=== PATIENT | female | born 1980 ===

== ENCOUNTER 2018-01-30 21:05 | Inpatient (IN) | payer OTHER, MEDICAID ==
--- NOTE | 2018-01-30 21:31 | C.PDOC ---
History Of Present Illness 37 y/o F BIBEMS s/p Seroquel overdose. Patient unable to recall amount taken, states it was suicide attempt. Denies pain. Full HPI/ROS unobtainable due to patient's condition. Time Seen by Provider: 01/30/18 21:21 Chief Complaint (Nursing): Substance Abuse Past Medical History Vital Signs: Last Vital Signs Temp 98.2 F 01/30/18 21:10 Pulse 101 H 01/30/18 21:37 Resp 16 01/30/18 21:37 BP 139/84 01/30/18 21:37 Pulse Ox 99 01/30/18 21:55 - Medical History PMH: Hypothyroidism Surgical History: Appendectomy Family History: States: No Known Family Hx - Social History Hx Alcohol Use: No Hx Substance Use: No Review Of Systems Review Of Systems: ROS cannot be obtained secondary to pt's inabilty to answer questions. Physical Exam - Physical Exam Additional Physical Exam Comments: Constitutional: Drowsy. Head: Normocephalic. Atraumatic. Eyes: Pupils mildly constricted. ENT: Moist mucous membranes. Neck: Supple. Cardiovascular: Regular rate. Radial pulse 2+ bilaterally. Chest: No tenderness. Respiratory: Clear to auscultation bilaterally. GI: Soft. Nontender. Nondistended. Back: No CVA tenderness. Musculoskeletal: No tenderness or swelling of extremities. Skin: No rash. Neurologic: Alert, no focal deficit. ED Course And Treatment - Laboratory Results Result Diagrams: 01/30/18 21:10 01/30/18 21:10 O2 Sat by Pulse Oximetry: 99 (RA) Pulse Ox Interpretation: Normal Critical Care Time - Critical Care Note Total Time (in mins): 60 Comments: Required complex decision making, consultation with multiple specialists. Documented critical care: time excludes all time spent performing seperately billable procedures. Medical Decision Making Medical Decision Making: EKG NSR 92 bpm, QRS 88, QTc 484 Magnesium 1.7 2g magnesium administered Repeat EKG NSR 95 bpm, QRS 94, QTc 424 Patient with bicarb 17 suggesting other concomitant ingestion. Discussed with Dr. Lucia ICU who accepts to ICU. Added serum osm and lactate to assess for cause of acidosis and anion gap. Psych consult placed. On 1:1. Discussed case with Jarod from Poison Control, recommendations appreciated. Dr. Nash Lucia accepts patient to medical service. Disposition - Disposition Disposition: HOSPITALIZED Disposition Time: 23:22 Condition: CRITICAL Forms: [employer] (Pakistani) - Clinical Impression Clinical Impression: Intentional overdose of drug in tablet form
[2018-01-30 21:36] LABS: BASO % 0.1 % (0.0-2.0); EOS % 0.1 % (0.0-4.0); HEMOGLOBIN 12.9 g/dL (11.0-16.0); LYMPH # 0.7 K/uL (1.0-4.3); LYMPH % 6.2 % (20.0-40.0); MEAN CELL VOLUME 79.3 fL (81.0-99.0); MEAN CORPUSCULAR HEMOGLOBIN 25.6 pg (27.0-31.0); MEAN CORPUSCULAR HGB CONC 32.3 g/dL (33.0-37.0); MEAN PLATELET VOLUME 8.6 fL (7.2-11.7); MONO # 0.6 K/uL (0.0-0.8); MONO % 5.1 % (0.0-10.0); NEUT # 10.4 K/uL (1.8-7.0); NEUT % 88.5 % (50.0-75.0); PLATELET COUNT 193 K/uL (130-400); RBC 5.02 Mil/uL (3.80-5.20); RED CELL DISTRIBUTION WIDTH 17.1 % (11.5-14.5); WHITE BLOOD COUNT 11.8 K/uL (4.8-10.8)
[2018-01-30] MEDS: Magnesium Sulfate 1 gm in D5W 1 GM/100 ML BAG IVPB SCH ×2 (21:45→22:05)
[2018-01-30] MEDS ORDERED: Magnesium Sulfate 1 gm in D5W 2 GM/200 ML BAG IVPB ONE (21:45)
[2018-01-30 21:48] LABS: ACETAMINOPHEN < 10.0 ug/mL (10.0-30.0); SALICYLATE < 1.0 [, mg/dL 1]
[2018-01-30 21:49] LABS: ALB/GLOB RATIO 1.1 (1.0-2.1); ALBUMIN 4.3 g/dL (3.5-5.0); CALCIUM 9.6 mg/dl (8.6-10.4)
[2018-01-30 21:53] LABS: LYMPHOCYTE 8 % (20-40); MONOCYTE 6 % (0-10); NEUTROPHIL 86 % (50-75); PLATELET ESTIMATE NORMAL (NORMAL); TOTAL CELLS COUNTED 100
[2018-01-30 21:54] LABS: ANISOCYTOSIS SLIGHT
[2018-01-30 21:59] LABS: HCG,QUALITATIVE URINE NEGATIVE (NEGATIVE)
[2018-01-30 22:02] LABS: SQUAMOUS EPITHIAL < 1 /hpf (0-5); URINE BILIRUBIN NEGATIVE (NEGATIVE); URINE BLOOD 1+ (NEGATIVE); URINE CLARITY Hazy (Clear); URINE COLOR Yellow (YELLOW); URINE GLUCOSE (UA) 1+ mg/dL (Normal); URINE HYALINE CAST 0-2 /lpf (0-2); URINE LEUKOCYTE ESTERASE NEG Leu/uL (Negative); URINE PROTEIN 2+ mg/dL (NEGATIVE); URINE UROBILINOGEN NORMAL mg/dL (0.2-1.0); WBC CLUMPS FEW /hpf
[2018-01-30 22:12] LABS: BARBITURATES, UR NEGATIVE (NEGATIVE); BENZODIAZEPINES, UR NEGATIVE (NEGATIVE); OPIATES, UR NEGATIVE (NEGATIVE); PHENCYCLIDINE, UR NEGATIVE (NEGATIVE)
[2018-01-30 22:58] LABS: ABG ALLEN TEST POS; ARTERIAL BLOOD GAS HCO3 20.9 mmol/L (21-28); ARTERIAL BLOOD GAS HEMOGLOBIN 12.6 g/dL (11.7-17.4); ARTERIAL BLOOD GAS O2 SAT 98.6 % (95-98); ARTERIAL BLOOD GAS PCO2 31 mm/Hg (35-45); ARTERIAL BLOOD GAS PH 7.39 (7.35-7.45); ARTERIAL BLOOD GAS PO2 96 mm/Hg (80-100); ARTERIAL BLOOD GAS TCO2 19.8 mmol/L (22-28)
--- NOTE | 2018-01-30 23:30 | CP.PCM.CON ---
History of Present Illness - History of Present Illness History of Present Illness: 37 y/o female found in room. EMS sheet not available. Please refer to ER documentation regrading EMS verbal report. Patient is not responsive and is drowsy. Patient awakens to verbal stimuli, but then goes back to sleep. ? seroquel overdose ? empty bottles found ROS: limited 2nd patient's underlying condition Review of Systems - Review of Systems All systems: reviewed and no additional remarkable complaints except Past Patient History - Infectious Disease Hx of Infectious Diseases: None - Tetanus Immunizations Tetanus Immunization: Unknown - Past Social History Smoking Status: Never Smoked - ENDOCRINE/METABOLIC Hx Hypothyroidism: Yes - PSYCHIATRIC Hx Substance Use: No - SURGICAL HISTORY Hx Appendectomy: Yes - ANESTHESIA Hx Anesthesia: Yes Hx Anesthesia Reactions: No Meds Allergies/Adverse Reactions: Allergies Allergy/AdvReac Type Severity Reaction Status Date / Time No Known Allergies Allergy Verified 01/30/18 21:15 - Medications Medications: Current Medications Sodium Bicarbonate 75 meq/ (Sodium Chloride) 1,075 mls @ 100 mls/hr IV .[id number] JACK Physical Exam - Head Exam Head Exam: ATRAUMATIC, NORMAL INSPECTION, NORMOCEPHALIC - Eye Exam Eye Exam: EOMI Pupil Exam: PERRL - ENT Exam ENT Exam: Mucous Membranes Moist - Respiratory Exam Respiratory Exam: Clear to Auscultation Bilateral, NORMAL BREATHING PATTERN - Cardiovascular Exam Cardiovascular Exam: REGULAR RHYTHM, +S1, +S2, +S4 - GI/Abdominal Exam GI & Abdominal Exam: Normal Bowel Sounds, Soft. absent: Distended, Guarding, Rebound, Rigid - Extremities Exam Extremities exam: Positive for: normal inspection - Neurological Exam Neurological exam: Altered Results - Vital Signs Recent Vital Signs: Last Vital Signs Temp 98.2 F 01/30/18 21:10 Pulse 101 H 01/30/18 21:37 Resp 16 01/30/18 21:37 BP 139/84 01/30/18 21:37 Pulse Ox 99 01/30/18 23:23 - Labs Result Diagrams: 01/30/18 21:10 01/30/18 23:35 Labs: Laboratory Results - last 24 hr 01/30/18 01/30/18 01/30/18 21:10 21:10 21:10 WBC 11.8 H RBC 5.02 Hgb 12.9 Hct 39.8 MCV 79.3 L MCH 25.6 L MCHC 32.3 L RDW 17.1 H Plt Count 193 MPV 8.6 Neut % (Auto) 88.5 H Lymph % (Auto) 6.2 L C[place] % (Auto) 5.1 Eos % (Auto) 0.1 Baso % (Auto) 0.1 Neut # (Auto) 10.4 H Lymph # (Auto) 0.7 L [place] # (Auto) 0.6 Eos # (Auto) 0.0 Baso # (Auto) 0.0 Neutrophils % (Manual) 86 H Lymphocytes % (Manual) 8 L Monocytes % (Manual) 6 Platelet Estimate Normal Anisocytosis (manual) Slight Puncture Site pCO2 pO2 HCO3 ABG pH ABG Total CO2 ABG O2 Saturation ABG Base Excess ABG Hemoglobin ABG Carboxyhemoglobin POC ABG HHb (Measured) ABG Methemoglobin Abelardo Test A-a O2 Difference Respiratory Index Hgb O2 Saturation FiO2 Sodium 145 Potassium 4.4 Chloride 110 H Carbon Dioxide 17 L Anion Gap 23 H BUN 15 Creatinine 1.3 H Est GFR ( Amer) 56 Est GFR (Non-Af Amer) 46 Random Glucose 128 H Calcium 9.6 Phosphorus Magnesium Total Bilirubin 0.5 AST 48 H ALT 21 Alkaline Phosphatase 80 Total Protein 8.2 Albumin 4.3 Globulin 3.9 Albumin/Globulin Ratio 1.1 Lipase 61 Urine Color Urine Clarity Urine pH Ur Specific Cl[place] Urine Protein Urine Glucose (UA) Urine Ketones Urine Blood Urine Nitrate Urine Bilirubin Urine Urobilinogen Ur Leukocyte Esterase Urine WBC (Auto) Urine RBC (Auto) Urine WBC Clumps (Auto) Ur Squamous Epith Cells Hyaline Casts Urine HCG, Qual Salicylates < 1.0 Urine Opiates Screen Urine Methadone Screen Acetaminophen < 10.0 L Ur Barbiturates Screen Ur Phencyclidine Scrn Ur Amphetamines Screen U Benzodiazepines Scrn U Oth Cocaine Metabols U Cannabinoids Screen Alcohol, Quantitative 01/30/18 01/30/18 01/30/18 21:50 21:50 22:00 WBC RBC Hgb Hct MCV MCH MCHC RDW Plt Count MPV Neut % (Auto) Lymph % (Auto) [place] % (Auto) Eos % (Auto) Baso % (Auto) Neut # (Auto) Lymph # (Auto) [place] # (Auto) Eos # (Auto) Baso # (Auto) Neutrophils % (Manual) Lymphocytes % (Manual) Monocytes % (Manual) Platelet Estimate Anisocytosis (manual) Puncture Site pCO2 pO2 HCO3 ABG pH ABG Total CO2 ABG O2 Saturation ABG Base Excess ABG Hemoglobin ABG Carboxyhemoglobin POC ABG HHb (Measured) ABG Methemoglobin Abelardo Test A-a O2 Difference Respiratory Index Hgb O2 Saturation FiO2 Sodium Potassium Chloride Carbon Dioxide Anion Gap BUN Creatinine Est GFR ( Amer) Est GFR (Non-Af Amer) Random Glucose Calcium Phosphorus 4.6 H Magnesium 1.7 Total Bilirubin AST ALT Alkaline Phosphatase Total Protein Albumin Globulin Albumin/Globulin Ratio Lipase Urine Color Yellow Urine Clarity Hazy Urine pH 5.0 Ur Specific [place] 1.015 Urine Protein 2+ H Urine Glucose (UA) 1+ Urine Ketones 1+ H Urine Blood 1+ H Urine Nitrate Negative Urine Bilirubin Negative Urine Urobilinogen Normal Ur Leukocyte Esterase Neg Urine WBC (Auto) 92 H Urine RBC (Auto) 2 Urine WBC Clumps (Auto) Few H Ur Squamous Epith Cells < 1 Hyaline Casts 0-2 Urine HCG, Qual Negative Salicylates Urine Opiates Screen Negative Urine Methadone Screen Negative Acetaminophen Ur Barbiturates Screen Negative Ur Phencyclidine Scrn Negative Ur Amphetamines Screen Negative U Benzodiazepines Scrn Negative U Oth Cocaine Metabols Negative U Cannabinoids Screen Positive H Alcohol, Quantitative < 10 01/30/18 22:50 WBC RBC Hgb Hct MCV MCH MCHC RDW Plt Count MPV Neut % (Auto) Lymph % (Auto) [place] % (Auto) Eos % (Auto) Baso % (Auto) Neut # (Auto) Lymph # (Auto) [place] # (Auto) Eos # (Auto) Baso # (Auto) Neutrophils % (Manual) Lymphocytes % (Manual) Monocytes % (Manual) Platelet Estimate Anisocytosis (manual) Puncture Site Rradial pCO2 31 L pO2 96 HCO3 20.9 L ABG pH 7.39 ABG Total CO2 19.8 L ABG O2 Saturation 98.6 H ABG Base Excess -5.2 L ABG Hemoglobin 12.6 ABG Carboxyhemoglobin 1.3 POC ABG HHb (Measured) 1.4 ABG Methemoglobin 0.7 Abelardo Test Pos A-a O2 Difference 15.0 Respiratory Index 0.2 Hgb O2 Saturation 96.6 FiO2 21.0 Sodium Potassium Chloride Carbon Dioxide Anion Gap BUN Creatinine Est GFR ( Amer) Est GFR (Non-Af Amer) Random Glucose Calcium Phosphorus Magnesium Total Bilirubin AST ALT Alkaline Phosphatase Total Protein Albumin Globulin Albumin/Globulin Ratio Lipase Urine Color Urine Clarity Urine pH Ur Specific [place] Urine Protein Urine Glucose (UA) Urine Ketones Urine Blood Urine Nitrate Urine Bilirubin Urine Urobilinogen Ur Leukocyte Esterase Urine WBC (Auto) Urine RBC (Auto) Urine WBC Clumps (Auto) Ur Squamous Epith Cells Hyaline Casts Urine HCG, Qual Salicylates Urine Opiates Screen Urine Methadone Screen Acetaminophen Ur Barbiturates Screen Ur Phencyclidine Scrn Ur Amphetamines Screen U Benzodiazepines Scrn U Oth Cocaine Metabols U Cannabinoids Screen Alcohol, Quantitative Assessment & Plan - Assessment and Plan (Free Text) Assessment: AMS: unknown what substace ingested, suspect opiate/benzo; however urine screen neg, possible synthetic opiates (+) THC, obtain CT head and observe with symptomatic treatment -monitor to keep spo2 >92, monitor to keep ETCO2 < 45 with good wave form for respiration pattern -Anion Gap Metabolic acidosis: obtain osmols, lactic and ketones, contineu IV bicarb -check QTC qdaily -dvt ppx scds -PUD ppx not indicated 1:1 as unknown history whether patient overdosed as suicidal attempt? -continue to monitor cmp/mag/phos/osmol q8hrs x3 -Patient will benefit from close monitoring including ETCO2. -Low threshold to intubate if not able to protect airway. - Date & Time Date: 01/30/18 Time: 23:30
[2018-01-30] MEDS ORDERED: Naloxone 0.4 mg/ml Inj (Adult) IVP ONE (23:33)
[2018-01-30] MEDS ORDERED: Naloxone 0.4 mg/ml Inj (Adult) ONE (23:52)
[2018-01-30 23:59] LABS: ALB/GLOB RATIO 1.2 (1.0-2.1); ALBUMIN 4.6 g/dL (3.5-5.0); CALCIUM 9.8 mg/dl (8.6-10.4)
[2018-01-31 06:44] LABS: BASO % 0.2 % (0.0-2.0); EOS % 0.3 % (0.0-4.0); HEMOGLOBIN 11.9 g/dL (11.0-16.0); LYMPH # 1.4 K/uL (1.0-4.3); LYMPH % 17.8 % (20.0-40.0); MEAN CELL VOLUME 78.4 fL (81.0-99.0); MEAN CORPUSCULAR HEMOGLOBIN 26.2 pg (27.0-31.0); MEAN CORPUSCULAR HGB CONC 33.4 g/dL (33.0-37.0); MEAN PLATELET VOLUME 9.1 fL (7.2-11.7); MONO # 0.7 K/uL (0.0-0.8); MONO % 8.3 % (0.0-10.0); NEUT # 5.8 K/uL (1.8-7.0); NEUT % 73.4 % (50.0-75.0); RBC 4.56 Mil/uL (3.80-5.20); RED CELL DISTRIBUTION WIDTH 16.9 % (11.5-14.5); WHITE BLOOD COUNT 7.9 K/uL (4.8-10.8)
[2018-01-31 06:57] LABS: ALB/GLOB RATIO 1.2 (1.0-2.1); ALBUMIN 4.2 g/dL (3.5-5.0); ALT/SGPT 22 U/L (9-52); AST/SGOT 50 U/L (14-36); BLOOD UREA NITROGEN 17 mg/dL (7-17); GFR AFRICAN-AMERICAN > 60; GFR NON-AFRICAN AMERICAN 51
--- NOTE | 2018-01-31 10:58 | US ---
Abdominal ultrasound History: Acute renal insufficiency. Comparison: None available. Technique: Real-time sonography was performed through the abdomen. Findings: Liver: 14.3 centimeters in length. Increased echogenicity of the hepatic parenchymal cortex suggestive for fatty infiltration versus hepatic parenchymal disease. Clinical correlation. Gallbladder: Cholelithiasis. Calculus measures up to 1.6 centimeters. Top normal wall thickness of 2.6 millimeters. Negative sonographic Merida's sign. Common bile duct measures 5.6 millimeters, mildly prominent. Pancreas not well visualized. Spleen measures 12.3 centimeters, upper limits of normal. Visualized aorta and IVC are grossly preserved. Mid and distal aorta not well visualized. Right kidney: 9.5 x 4.3 x 4.7 centimeters. Mild increased echogenicity of the renal parenchymal cortex suggestive for medical renal disease. No calculi or hydronephrosis. Left Kidney: Somewhat limited evaluation. 10.5 x 5.1 x 4.8 centimeters. Mild increased echogenicity of the renal parenchymal cortex suggestive for medical renal disease. No calculi or hydronephrosis. Limited study as patient is noncooperative. Impression: Increased echogenicity of the bilateral renal parenchymal cortices suggestive for medical renal disease. Clinical correlation. Increased echogenicity of the hepatic parenchymal cortex suggestive for fatty infiltration versus hepatic parenchymal disease. Clinical correlation. Cholelithiasis. Prominent common bile duct measures 5.6 millimeters, clinical correlation. Limited visualization of the pancreas. These findings were preliminarily reported at 2:27 a.m. on 01/31/[address] Franco Rodriguez from [facility].
--- NOTE | 2018-01-31 11:25 | RAD ---
Date of service: 01/30/2018 HISTORY: overdose COMPARISON: No prior. FINDINGS: LUNGS: No active pulmonary disease. PLEURA: No significant pleural effusion identified, no pneumothorax apparent. CARDIOVASCULAR: Normal. OSSEOUS STRUCTURES: No significant abnormalities. VISUALIZED UPPER ABDOMEN: Normal. OTHER FINDINGS: None. IMPRESSION: No active disease.
--- NOTE | 2018-01-31 12:54 | PCM.PSYCH ---
Initial Psychiatric Evaluation - Initial Psychiatric Evaluation Type of Admission: Voluntary Chief Complaint (in patient's own words): No chief complaint as she is confused History of Present Illness and Precipitating Events: The pt is seen, chart reviewed and case discussed Consult was requested b/c of her seroquel OD She is confused and uncooperative. She had to be medicated due to aggressive behavior. She is disoriented and labile, has poor sleep Medical treatment is ongoing but she is yet to improve. She OD'ed on unknown amount of seroquel but the details are not known. 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 Thyroid problems? (per chart) Current Medications: Active Medications Generic Name Dose Route Start Last Admin Trade Name Freq PRN Reason Stop Dose Admin Heparin Sodium (Porcine) 5,000 units 01/31/18 06:00 01/31/18 07:09 Heparin SC 5,000 units Q8 JACK Administration Sodium Bicarbonate 75 meq/ 1,075 mls @ 150 mls/hr 01/30/18 23:33 01/31/18 07: 55 Sodium Chloride IV 150 mls/hr .[id number] JACK Administration Past Psychiatric History - Past Psychiatric History Previous Treatment History: Inpatient (unknown yet) Pertinent Medical Hx (Current Medical&Sleep Prob, Allergies): Allergies Allergy/AdvReac Type Severity Reaction Status Date / Time No Known Allergies Allergy Verified 01/30/18 21:15 Naproxen [Naprosyn] 1 tab PO BID PRN #60 tab 10/08/16 Review of Systems - Review of Systems Systems not reviewed;Unavailable: Altered Mental Status (and she is uncooperative, agitated) Mental Status Examination - Personal Presentation Personal Presentation: Looks older than stated age - Affect Affect: Other (labile) - Motor Activity Motor Activity: Psychomotor Agitation - Reliability in Providing Information Reliability in Providing Information: Poor, due to cognitve impairment - Speech Speech: Disorganized - Mood Mood: Other (agitated) - Formal Thought Process Formal Thought Process: Other (unable to assess) - Cognitive Functions Orientation: Situation (disoriented) Sensorium: Drowsy Attention/Concentration: Easily distracted Abstract Thinking: [place] Judgement: Imparied, as evidence by: Poor judgement Memory: Recent impaired, as evidence by: Inability to recall events of the day, Remote impaired as evidenced by: Inability to recall sig life events - Risk Risk: Diminished functioning DSM 5 DX - DSM 5 DSM 5 Diagnosis: Delirium Bipolar disorder - last episode unspecified - Recommended/Plan of Treatment Treatment Recommendations and Plan of Treatment: Continue current treatment No psych meds except for prn haldol and ativan for now Try to get collateral info re past history, the suicide attempt 1:1 31 min
[2018-01-31 14:06] LABS: FREE T4 1.64 ng/dL (0.78-2.19)
[2018-01-31 14:08] LABS: ALB/GLOB RATIO 1.1 (1.0-2.1); ALT/SGPT 24 U/L (9-52); AST/SGOT 48 U/L (14-36); BLOOD UREA NITROGEN 16 mg/dL (7-17); CALCIUM 9.1 mg/dl (8.6-10.4); GFR AFRICAN-AMERICAN > 60; GFR NON-AFRICAN AMERICAN 56
--- NOTE | 2018-01-31 14:52 | CP.CCUPN ---
CCU Subjective - Physician Review Subjective (Free Text): PGY-1 critical care progress note. Patient seen and evaluated at bedside. Dhaval zhu called for this patient due to aggressive behavior and Ativan 2mg given. At the time of exam, patient is somnolent but arousable. Unable to obtain ROS. 01/31/18 21:11 CCU Objective - Vital Signs / Intake & Output Vital Signs (Last 4 hours): Vital Signs Temp Pulse Resp BP Pulse Ox 01/31/18 14:00 102 H 19 99 01/31/18 13:57 102 H 17 135/83 98 01/31/18 13:00 99 H 19 96 01/31/18 12:57 103 H 21 137/94 H 97 01/31/18 12:00 98.5 F 111 H 22 98 01/31/18 11:57 105 H 20 138/84 98 01/31/18 11:00 104 H 18 98 01/31/18 10:57 103 H 21 129/91 H 96 Intake and Output (Last 8hrs): Intake & Output 01/30/18 01/31/18 01/31/18 22:59 06:59 14:59 Intake Total 600 1200 Balance 600 1200 Weight 170 lb 178 lb 6 oz Intake: Intake, IV Amount 600 1200 Left Antecubital 600 1200 Oral 0 Other: # Bowel Movements 0 0 - Physical Exam Head: Positive for: Atraumatic, Normocephalic Extroacular Muscles: Positive for: EOMI Mouth: Positive for: Moist Mucous Membranes Neck: Positive for: Normal Range of Motion Respiratory/Chest: Positive for: Clear to Auscultation Cardiovascular: Positive for: Regular Rate and Rhythm, Normal S1, S2 Abdomen: Positive for: Normal Bowel Sounds. Negative for: Tenderness, Distention Lower Extremity: Positive for: Normal Inspection. Negative for: CALF TENDERNESS Neurological: Positive for: Other (somnolent but arousable.) Skin: Positive for: Warm, Dry, Normal Color - Medications Active Medications: Active Medications Generic Name Dose Route Start Last Admin Trade Name Freq PRN Reason Stop Dose Admin Heparin Sodium (Porcine) 5,000 units 01/31/18 06:00 01/31/18 13:37 Heparin SC 5,000 units Q8 JACK Administration Sodium Bicarbonate 75 meq/ 1,075 mls @ 150 mls/hr 01/30/18 23:33 01/31/18 07: 55 Sodium Chloride IV 150 mls/hr .[id number] JACK Administration Potassium Chloride 10 meq in 100 mls @ 100 mls/hr 01/31/18 14:48 Potassium Chloride 10 Meq/100 Ml IVPB 01/31/18 15:47 ONCE ONE Potassium Chloride 10 meq in 100 mls @ 100 mls/hr 01/31/18 14:50 Potassium Chloride 10 Meq/100 Ml IVPB 01/31/18 15:49 ONCE ONE Lorazepam 1 mg 01/31/18 12:54 01/31/18 13:06 Ativan IVP 1 mg Q4H PRN Administration Agitation - Patient Studies Lab Studies: Lab Studies 01/31/18 01/31/18 01/31/18 Range/Units 12:07 12:07 06:37 WBC 7.9 (4.8-10.8) K/uL RBC 4.56 (3.80-5.20) Mil/uL Hgb 11.9 (11.0-16.0) g/dL Hct 35.8 (34.0-47.0) % MCV 78.4 L (81.0-99.0) fL MCH 26.2 L (27.0-31.0) pg MCHC 33.4 (33.0-37.0) g/dL RDW 16.9 H (11.5-14.5) % Plt Count 194 (130-400) K/uL MPV 9.1 (7.2-11.7) fL Neut % (Auto) 73.4 (50.0-75.0) % Lymph % (Auto) 17.8 L (20.0-40.0) % [place] % (Auto) 8.3 (0.0-10.0) % Eos % (Auto) 0.3 (0.0-4.0) % Baso % (Auto) 0.2 (0.0-2.0) % Neut # (Auto) 5.8 (1.8-7.0) K/uL Lymph # (Auto) 1.4 (1.0-4.3) K/uL [place] # (Auto) 0.7 (0.0-0.8) K/uL Eos # (Auto) 0.0 (0.0-0.7) K/uL Baso # (Auto) 0.0 (0.0-0.2) K/uL Neutrophils % (Manual) (50-75) % Lymphocytes % (Manual) (20-40) % Monocytes % (Manual) (0-10) % Platelet Estimate (NORMAL) Anisocytosis (manual) Puncture Site pCO2 (35-45) mm/Hg pO2 (80-100) mm/Hg HCO3 (21-28) mmol/L ABG pH (7.35-7.45) ABG Total CO2 (22-28) mmol/L ABG O2 Saturation (95-98) % ABG Base Excess (-2.0-3.0) mmol/L ABG Hemoglobin (11.7-17.4) g/dL ABG Carboxyhemoglobin (0.5-1.5) % POC ABG HHb (Measured) (0.0-5.0) % ABG Methemoglobin (0.0-3.0) % Abelardo Test A-a O2 Difference mm/Hg Respiratory Index Hgb O2 Saturation (95.0-98.0) % FiO2 % Sodium 143 (132-148) mmol/L Potassium 3.0 L (3.6-5.2) mmol/L Chloride 108 H (98-107) mmol/L Carbon Dioxide 23 (22-30) mmol/L Anion Gap 15 (10-20) BUN 16 (7-17) mg/dL Creatinine 1.1 (0.7-1.2) mg/dL Est GFR ( Amer) > 60 Est GFR (Non-Af Amer) 56 POC Glucose (mg/dL) (65-110) mg/dL Random Glucose 100 (65-105) mg/dL Hemoglobin A1c (4.2-6.5) % Serum Osmolality (272-300) mosm/kg Lactic Acid (0.7-2.1) mmol/L Calcium 9.1 (8.6-10.4) mg/dl Phosphorus 3.3 (2.5-4.5) mg/dL Magnesium 2.0 (1.6-2.3) mg/dL Total Bilirubin 0.5 (0.2-1.3) mg/dL AST 48 H (14-36) U/L ALT 24 (9-52) U/L Alkaline Phosphatase 81 (38-126) U/L Total Creatine Kinase 1138 H (30-135) U/L CK-MB (Mass) 11.0 H (0.0-3.38) ng/mL Troponin I 0.0230 (0.00-0.120) ng/mL Total Protein 7.6 (6.3-8.3) g/dL Albumin 4.0 (3.5-5.0) g/dL Globulin 3.6 (2.2-3.9) gm/dL Albumin/Globulin Ratio 1.1 (1.0-2.1) Lipase (23-300) U/L Free T4 1.64 (0.78-2.19) ng/dL TSH 3rd Generation 0.96 (0.46-4.68) mIU/L Urine Color (YELLOW) Urine Clarity (Clear) Urine pH (5.0-8.0) Ur Specific [place] (1.003-1.030) Urine Protein (NEGATIVE) mg/dL Urine Glucose (UA) (Normal) mg/dL Urine Ketones (NEGATIVE) mg/dL Urine Blood (NEGATIVE) Urine Nitrate (NEGATIVE) Urine Bilirubin (NEGATIVE) Urine Urobilinogen (0.2-1.0) mg/dL Ur Leukocyte Esterase (Negative) Crystal/uL Urine WBC (Auto) (0-5) /hpf Urine RBC (Auto) (0-3) /hpf Urine WBC Clumps (Auto) (NONE) /hpf Ur Squamous Epith Cells (0-5) /hpf Hyaline Casts (0-2) /lpf Urine HCG, Qual (NEGATIVE) Salicylates mg/dL 1 Urine Opiates Screen (NEGATIVE) Urine Methadone Screen (NEGATIVE) Acetaminophen (10.0-30.0) ug/mL Ur Barbiturates Screen (NEGATIVE) Ur Phencyclidine Scrn (NEGATIVE) Ur Amphetamines Screen (NEGATIVE) U Benzodiazepines Scrn (NEGATIVE) U Oth Cocaine Metabols (NEGATIVE) U Cannabinoids Screen (NEGATIVE) Alcohol, Quantitative (0-10) mg/dl B-Hydroxybutyrate (0.02-0.27) mM 01/31/18 01/31/18 01/31/18 Range/Units 06:37 06:37 00:43 WBC (4.8-10.8) K/uL RBC (3.80-5.20) Mil/uL Hgb (11.0-16.0) g/dL Hct (34.0-47.0) % MCV (81.0-99.0) fL MCH (27.0-31.0) pg MCHC (33.0-37.0) g/dL RDW (11.5-14.5) % Plt Count (130-400) K/uL MPV (7.2-11.7) fL Neut % (Auto) (50.0-75.0) % Lymph % (Auto) (20.0-40.0) % [place] % (Auto) (0.0-10.0) % Eos % (Auto) (0.0-4.0) % Baso % (Auto) (0.0-2.0) % Neut # (Auto) (1.8-7.0) K/uL Lymph # (Auto) (1.0-4.3) K/uL [place] # (Auto) (0.0-0.8) K/uL Eos # (Auto) (0.0-0.7) K/uL Baso # (Auto) (0.0-0.2) K/uL Neutrophils % (Manual) (50-75) % Lymphocytes % (Manual) (20-40) % Monocytes % (Manual) (0-10) % Platelet Estimate (NORMAL) Anisocytosis (manual) Puncture Site pCO2 (35-45) mm/Hg pO2 (80-100) mm/Hg HCO3 (21-28) mmol/L ABG pH (7.35-7.45) ABG Total CO2 (22-28) mmol/L ABG O2 Saturation (95-98) % ABG Base Excess (-2.0-3.0) mmol/L ABG Hemoglobin (11.7-17.4) g/dL ABG Carboxyhemoglobin (0.5-1.5) % POC ABG HHb (Measured) (0.0-5.0) % ABG Methemoglobin (0.0-3.0) % [place]ardo Test A-a O2 Difference mm/Hg Respiratory Index Hgb O2 Saturation (95.0-98.0) % FiO2 % Sodium 143 (132-148) mmol/L Potassium 3.6 (3.6-5.2) mmol/L Chloride 109 H (98-107) mmol/L Carbon Dioxide 21 L (22-30) mmol/L Anion Gap 18 (10-20) BUN 17 (7-17) mg/dL Creatinine 1.2 (0.7-1.2) mg/dL Est GFR ( Amer) > 60 Est GFR (Non-Af Amer) 51 POC Glucose (mg/dL) (65-110) mg/dL Random Glucose 89 (65-105) mg/dL Hemoglobin A1c (4.2-6.5) % Serum Osmolality 297 301 H (272-300) mosm/kg Lactic Acid (0.7-2.1) mmol/L Calcium 9.0 (8.6-10.4) mg/dl Phosphorus 4.2 (2.5-4.5) mg/dL Magnesium 2.4 H (1.6-2.3) mg/dL Total Bilirubin 0.4 (0.2-1.3) mg/dL AST 50 H (14-36) U/L ALT 22 (9-52) U/L Alkaline Phosphatase 73 (38-126) U/L Total Creatine Kinase (30-135) U/L CK-MB (Mass) (0.0-3.38) ng/mL Troponin I (0.00-0.120) ng/mL Total Protein 7.5 (6.3-8.3) g/dL Albumin 4.2 (3.5-5.0) g/dL Globulin 3.3 (2.2-3.9) gm/dL Albumin/Globulin Ratio 1.2 (1.0-2.1) Lipase (23-300) U/L Free T4 (0.78-2.19) ng/dL TSH 3rd Generation (0.46-4.68) mIU/L Urine Color (YELLOW) Urine Clarity (Clear) Urine pH (5.0-8.0) Ur Specific [place] (1.003-1.030) Urine Protein (NEGATIVE) mg/dL Urine Glucose (UA) (Normal) mg/dL Urine Ketones (NEGATIVE) mg/dL Urine Blood (NEGATIVE) Urine Nitrate (NEGATIVE) Urine Bilirubin (NEGATIVE) Urine Urobilinogen (0.2-1.0) mg/dL Ur Leukocyte Esterase (Negative) Crystal/uL Urine WBC (Auto) (0-5) /hpf Urine RBC (Auto) (0-3) /hpf Urine WBC Clumps (Auto) (NONE) /hpf Ur Squamous Epith Cells (0-5) /hpf Hyaline Casts (0-2) /lpf Urine HCG, Qual (NEGATIVE) Salicylates mg/dL 1 Urine Opiates Screen (NEGATIVE) Urine Methadone Screen (NEGATIVE) Acetaminophen (10.0-30.0) ug/mL Ur Barbiturates Screen (NEGATIVE) Ur Phencyclidine Scrn (NEGATIVE) Ur Amphetamines Screen (NEGATIVE) U Benzodiazepines Scrn (NEGATIVE) U Oth Cocaine Metabols (NEGATIVE) U Cannabinoids Screen (NEGATIVE) Alcohol, Quantitative (0-10) mg/dl B-Hydroxybutyrate (0.02-0.27) mM 01/30/18 01/30/18 01/30/18 Range/Units 23:35 23:20 23:20 WBC (4.8-10.8) K/uL RBC (3.80-5.20) Mil/uL Hgb (11.0-16.0) g/dL Hct (34.0-47.0) % MCV (81.0-99.0) fL MCH (27.0-31.0) pg MCHC (33.0-37.0) g/dL RDW (11.5-14.5) % Plt Count (130-400) K/uL MPV (7.2-11.7) fL Neut % (Auto) (50.0-75.0) % Lymph % (Auto) (20.0-40.0) % [place] % (Auto) (0.0-10.0) % Eos % (Auto) (0.0-4.0) % Baso % (Auto) (0.0-2.0) % Neut # (Auto) (1.8-7.0) K/uL Lymph # (Auto) (1.0-4.3) K/uL [place] # (Auto) (0.0-0.8) K/uL Eos # (Auto) (0.0-0.7) K/uL Baso # (Auto) (0.0-0.2) K/uL Neutrophils % (Manual) (50-75) % Lymphocytes % (Manual) (20-40) % Monocytes % (Manual) (0-10) % Platelet Estimate (NORMAL) Anisocytosis (manual) Puncture Site pCO2 (35-45) mm/Hg pO2 (80-100) mm/Hg HCO3 (21-28) mmol/L ABG pH (7.35-7.45) ABG Total CO2 (22-28) mmol/L ABG O2 Saturation (95-98) % ABG Base Excess (-2.0-3.0) mmol/L ABG Hemoglobin (11.7-17.4) g/dL ABG Carboxyhemoglobin (0.5-1.5) % POC ABG HHb (Measured) (0.0-5.0) % ABG Methemoglobin (0.0-3.0) % [place]ardo Test A-a O2 Difference mm/Hg Respiratory Index Hgb O2 Saturation (95.0-98.0) % FiO2 % Sodium 144 (132-148) mmol/L Potassium 3.8 (3.6-5.2) mmol/L Chloride 106 (98-107) mmol/L Carbon Dioxide 20 L (22-30) mmol/L Anion Gap 21 H (10-20) BUN 15 (7-17) mg/dL Creatinine 1.4 H (0.7-1.2) mg/dL Est GFR ( Amer) 51 Est GFR (Non-Af Amer) 43 POC Glucose (mg/dL) (65-110) mg/dL Random Glucose 135 H (65-105) mg/dL Hemoglobin A1c 5.6 (4.2-6.5) % Serum Osmolality (272-300) mosm/kg Lactic Acid (0.7-2.1) mmol/L Calcium 9.8 (8.6-10.4) mg/dl Phosphorus 4.1 (2.5-4.5) mg/dL Magnesium 3.0 H (1.6-2.3) mg/dL Total Bilirubin 0.3 (0.2-1.3) mg/dL AST 43 H (14-36) U/L ALT 27 (9-52) U/L Alkaline Phosphatase 95 (38-126) U/L Total Creatine Kinase (30-135) U/L CK-MB (Mass) (0.0-3.38) ng/mL Troponin I (0.00-0.120) ng/mL Total Protein 8.5 H (6.3-8.3) g/dL Albumin 4.6 (3.5-5.0) g/dL Globulin 3.9 (2.2-3.9) gm/dL Albumin/Globulin Ratio 1.2 (1.0-2.1) Lipase (23-300) U/L Free T4 (0.78-2.19) ng/dL TSH 3rd Generation (0.46-4.68) mIU/L Urine Color (YELLOW) Urine Clarity (Clear) Urine pH (5.0-8.0) Ur Specific [place] (1.003-1.030) Urine Protein (NEGATIVE) mg/dL Urine Glucose (UA) (Normal) mg/dL Urine Ketones (NEGATIVE) mg/dL Urine Blood (NEGATIVE) Urine Nitrate (NEGATIVE) Urine Bilirubin (NEGATIVE) Urine Urobilinogen (0.2-1.0) mg/dL Ur Leukocyte Esterase (Negative) Crystal/uL Urine WBC (Auto) (0-5) /hpf Urine RBC (Auto) (0-3) /hpf Urine WBC Clumps (Auto) (NONE) /hpf Ur Squamous Epith Cells (0-5) /hpf Hyaline Casts (0-2) /lpf Urine HCG, Qual (NEGATIVE) Salicylates mg/dL 1 Urine Opiates Screen (NEGATIVE) Urine Methadone Screen (NEGATIVE) Acetaminophen (10.0-30.0) ug/mL Ur Barbiturates Screen (NEGATIVE) Ur Phencyclidine Scrn (NEGATIVE) Ur Amphetamines Screen (NEGATIVE) U Benzodiazepines Scrn (NEGATIVE) U Oth Cocaine Metabols (NEGATIVE) U Cannabinoids Screen (NEGATIVE) Alcohol, Quantitative (0-10) mg/dl B-Hydroxybutyrate 0.24 (0.02-0.27) mM 01/30/18 01/30/18 01/30/18 Range/Units 23:20 22:50 22:00 WBC (4.8-10.8) K/uL RBC (3.80-5.20) Mil/uL Hgb (11.0-16.0) g/dL Hct (34.0-47.0) % MCV (81.0-99.0) fL MCH (27.0-31.0) pg MCHC (33.0-37.0) g/dL RDW (11.5-14.5) % Plt Count (130-400) K/uL MPV (7.2-11.7) fL Neut % (Auto) (50.0-75.0) % Lymph % (Auto) (20.0-40.0) % [place] % (Auto) (0.0-10.0) % Eos % (Auto) (0.0-4.0) % Baso % (Auto) (0.0-2.0) % Neut # (Auto) (1.8-7.0) K/uL Lymph # (Auto) (1.0-4.3) K/uL [place] # (Auto) (0.0-0.8) K/uL Eos # (Auto) (0.0-0.7) K/uL Baso # (Auto) (0.0-0.2) K/uL Neutrophils % (Manual) (50-75) % Lymphocytes % (Manual) (20-40) % Monocytes % (Manual) (0-10) % Platelet Estimate (NORMAL) Anisocytosis (manual) Puncture Site Rradial pCO2 31 L (35-45) mm/Hg pO2 96 (80-100) mm/Hg HCO3 20.9 L (21-28) mmol/L ABG pH 7.39 (7.35-7.45) ABG Total CO2 19.8 L (22-28) mmol/L ABG O2 Saturation 98.6 H (95-98) % ABG Base Excess -5.2 L (-2.0-3.0) mmol/L ABG Hemoglobin 12.6 (11.7-17.4) g/dL ABG Carboxyhemoglobin 1.3 (0.5-1.5) % POC ABG HHb (Measured) 1.4 (0.0-5.0) % ABG Methemoglobin 0.7 (0.0-3.0) % Abelardo Test Pos A-a O2 Difference 15.0 mm/Hg Respiratory Index 0.2 Hgb O2 Saturation 96.6 (95.0-98.0) % FiO2 21.0 % Sodium (132-148) mmol/L Potassium (3.6-5.2) mmol/L Chloride (98-107) mmol/L Carbon Dioxide (22-30) mmol/L Anion Gap (10-20) BUN (7-17) mg/dL Creatinine (0.7-1.2) mg/dL Est GFR ( Amer) Est GFR (Non-Af Amer) POC Glucose (mg/dL) (65-110) mg/dL Random Glucose (65-105) mg/dL Hemoglobin A1c (4.2-6.5) % Serum Osmolality (272-300) mosm/kg Lactic Acid 2.3 H (0.7-2.1) mmol/L Calcium (8.6-10.4) mg/dl Phosphorus 4.6 H (2.5-4.5) mg/dL Magnesium 1.7 (1.6-2.3) mg/dL Total Bilirubin (0.2-1.3) mg/dL AST (14-36) U/L ALT (9-52) U/L Alkaline Phosphatase (38-126) U/L Total Creatine Kinase (30-135) U/L CK-MB (Mass) (0.0-3.38) ng/mL Troponin I (0.00-0.120) ng/mL Total Protein (6.3-8.3) g/dL Albumin (3.5-5.0) g/dL Globulin (2.2-3.9) gm/dL Albumin/Globulin Ratio (1.0-2.1) Lipase (23-300) U/L Free T4 (0.78-2.19) ng/dL TSH 3rd Generation (0.46-4.68) mIU/L Urine Color (YELLOW) Urine Clarity (Clear) Urine pH (5.0-8.0) Ur Specific [place] (1.003-1.030) Urine Protein (NEGATIVE) mg/dL Urine Glucose (UA) (Normal) mg/dL Urine Ketones (NEGATIVE) mg/dL Urine Blood (NEGATIVE) Urine Nitrate (NEGATIVE) Urine Bilirubin (NEGATIVE) Urine Urobilinogen (0.2-1.0) mg/dL Ur Leukocyte Esterase (Negative) Crystal/uL Urine WBC (Auto) (0-5) /hpf Urine RBC (Auto) (0-3) /hpf Urine WBC Clumps (Auto) (NONE) /hpf Ur Squamous Epith Cells (0-5) /hpf Hyaline Casts (0-2) /lpf Urine HCG, Qual (NEGATIVE) Salicylates mg/dL 1 Urine Opiates Screen (NEGATIVE) Urine Methadone Screen (NEGATIVE) Acetaminophen (10.0-30.0) ug/mL Ur Barbiturates Screen (NEGATIVE) Ur Phencyclidine Scrn (NEGATIVE) Ur Amphetamines Screen (NEGATIVE) U Benzodiazepines Scrn (NEGATIVE) U Oth Cocaine Metabols (NEGATIVE) U Cannabinoids Screen (NEGATIVE) Alcohol, Quantitative < 10 (0-10) mg/dl B-Hydroxybutyrate (0.02-0.27) mM 01/30/18 01/30/18 01/30/18 Range/Units 21:50 21:50 21:28 WBC (4.8-10.8) K/uL RBC (3.80-5.20) Mil/uL Hgb (11.0-16.0) g/dL Hct (34.0-47.0) % MCV (81.0-99.0) fL MCH (27.0-31.0) pg MCHC (33.0-37.0) g/dL RDW (11.5-14.5) % Plt Count (130-400) K/uL MPV (7.2-11.7) fL Neut % (Auto) (50.0-75.0) % Lymph % (Auto) (20.0-40.0) % [place] % (Auto) (0.0-10.0) % Eos % (Auto) (0.0-4.0) % Baso % (Auto) (0.0-2.0) % Neut # (Auto) (1.8-7.0) K/uL Lymph # (Auto) (1.0-4.3) K/uL [place] # (Auto) (0.0-0.8) K/uL Eos # (Auto) (0.0-0.7) K/uL Baso # (Auto) (0.0-0.2) K/uL Neutrophils % (Manual) (50-75) % Lymphocytes % (Manual) (20-40) % Monocytes % (Manual) (0-10) % Platelet Estimate (NORMAL) Anisocytosis (manual) Puncture Site pCO2 (35-45) mm/Hg pO2 (80-100) mm/Hg HCO3 (21-28) mmol/L ABG pH (7.35-7.45) ABG Total CO2 (22-28) mmol/L ABG O2 Saturation (95-98) % ABG Base Excess (-2.0-3.0) mmol/L ABG Hemoglobin (11.7-17.4) g/dL ABG Carboxyhemoglobin (0.5-1.5) % POC ABG HHb (Measured) (0.0-5.0) % ABG Methemoglobin (0.0-3.0) % Abelardo Test A-a O2 Difference mm/Hg Respiratory Index Hgb O2 Saturation (95.0-98.0) % FiO2 % Sodium (132-148) mmol/L Potassium (3.6-5.2) mmol/L Chloride (98-107) mmol/L Carbon Dioxide (22-30) mmol/L Anion Gap (10-20) BUN (7-17) mg/dL Creatinine (0.7-1.2) mg/dL Est GFR ( Amer) Est GFR (Non-Af Amer) POC Glucose (mg/dL) 122 H (65-110) mg/dL Random Glucose (65-105) mg/dL Hemoglobin A1c (4.2-6.5) % Serum Osmolality (272-300) mosm/kg Lactic Acid (0.7-2.1) mmol/L Calcium (8.6-10.4) mg/dl Phosphorus (2.5-4.5) mg/dL Magnesium (1.6-2.3) mg/dL Total Bilirubin (0.2-1.3) mg/dL AST (14-36) U/L ALT (9-52) U/L Alkaline Phosphatase (38-126) U/L Total Creatine Kinase (30-135) U/L CK-MB (Mass) (0.0-3.38) ng/mL Troponin I (0.00-0.120) ng/mL Total Protein (6.3-8.3) g/dL Albumin (3.5-5.0) g/dL Globulin (2.2-3.9) gm/dL Albumin/Globulin Ratio (1.0-2.1) Lipase (23-300) U/L Free T4 (0.78-2.19) ng/dL TSH 3rd Generation (0.46-4.68) mIU/L Urine Color Yellow (YELLOW) Urine Clarity Hazy (Clear) Urine pH 5.0 (5.0-8.0) Ur Specific [place] 1.015 (1.003-1.030) Urine Protein 2+ H (NEGATIVE) mg/dL Urine Glucose (UA) 1+ (Normal) mg/dL Urine Ketones 1+ H (NEGATIVE) mg/dL Urine Blood 1+ H (NEGATIVE) Urine Nitrate Negative (NEGATIVE) Urine Bilirubin Negative (NEGATIVE) Urine Urobilinogen Normal (0.2-1.0) mg/dL Ur Leukocyte Esterase Neg (Negative) Crystal/uL Urine WBC (Auto) 92 H (0-5) /hpf Urine RBC (Auto) 2 (0-3) /hpf Urine WBC Clumps (Auto) Few H (NONE) /hpf Ur Squamous Epith Cells < 1 (0-5) /hpf Hyaline Casts 0-2 (0-2) /lpf Urine HCG, Qual Negative (NEGATIVE) Salicylates mg/dL 1 Urine Opiates Screen Negative (NEGATIVE) Urine Methadone Screen Negative (NEGATIVE) Acetaminophen (10.0-30.0) ug/mL Ur Barbiturates Screen Negative (NEGATIVE) Ur Phencyclidine Scrn Negative (NEGATIVE) Ur Amphetamines Screen Negative (NEGATIVE) U Benzodiazepines Scrn Negative (NEGATIVE) U Oth Cocaine Metabols Negative (NEGATIVE) U Cannabinoids Screen Positive H (NEGATIVE) Alcohol, Quantitative (0-10) mg/dl B-Hydroxybutyrate (0.02-0.27) mM 01/30/18 01/30/18 01/30/18 Range/Units 21:10 21:10 21:10 WBC 11.8 H (4.8-10.8) K/uL RBC 5.02 (3.80-5.20) Mil/uL Hgb 12.9 (11.0-16.0) g/dL Hct 39.8 (34.0-47.0) % MCV 79.3 L (81.0-99.0) fL MCH 25.6 L (27.0-31.0) pg MCHC 32.3 L (33.0-37.0) g/dL RDW 17.1 H (11.5-14.5) % Plt Count 193 (130-400) K/uL MPV 8.6 (7.2-11.7) fL Neut % (Auto) 88.5 H (50.0-75.0) % Lymph % (Auto) 6.2 L (20.0-40.0) % [place] % (Auto) 5.1 (0.0-10.0) % Eos % (Auto) 0.1 (0.0-4.0) % Baso % (Auto) 0.1 (0.0-2.0) % Neut # (Auto) 10.4 H (1.8-7.0) K/uL Lymph # (Auto) 0.7 L (1.0-4.3) K/uL [place] # (Auto) 0.6 (0.0-0.8) K/uL Eos # (Auto) 0.0 (0.0-0.7) K/uL Baso # (Auto) 0.0 (0.0-0.2) K/uL Neutrophils % (Manual) 86 H (50-75) % Lymphocytes % (Manual) 8 L (20-40) % Monocytes % (Manual) 6 (0-10) % Platelet Estimate Normal (NORMAL) Anisocytosis (manual) Slight Puncture Site pCO2 (35-45) mm/Hg pO2 (80-100) mm/Hg HCO3 (21-28) mmol/L ABG pH (7.35-7.45) ABG Total CO2 (22-28) mmol/L ABG O2 Saturation (95-98) % ABG Base Excess (-2.0-3.0) mmol/L ABG Hemoglobin (11.7-17.4) g/dL ABG Carboxyhemoglobin (0.5-1.5) % POC ABG HHb (Measured) (0.0-5.0) % ABG Methemoglobin (0.0-3.0) % [place]ardo Test A-a O2 Difference mm/Hg Respiratory Index Hgb O2 Saturation (95.0-98.0) % FiO2 % Sodium 145 (132-148) mmol/L Potassium 4.4 (3.6-5.2) mmol/L Chloride 110 H (98-107) mmol/L Carbon Dioxide 17 L (22-30) mmol/L Anion Gap 23 H (10-20) BUN 15 (7-17) mg/dL Creatinine 1.3 H (0.7-1.2) mg/dL Est GFR ( Amer) 56 Est GFR (Non-Af Amer) 46 POC Glucose (mg/dL) (65-110) mg/dL Random Glucose 128 H (65-105) mg/dL Hemoglobin A1c (4.2-6.5) % Serum Osmolality (272-300) mosm/kg Lactic Acid (0.7-2.1) mmol/L Calcium 9.6 (8.6-10.4) mg/dl Phosphorus (2.5-4.5) mg/dL Magnesium (1.6-2.3) mg/dL Total Bilirubin 0.5 (0.2-1.3) mg/dL AST 48 H (14-36) U/L ALT 21 (9-52) U/L Alkaline Phosphatase 80 (38-126) U/L Total Creatine Kinase (30-135) U/L CK-MB (Mass) (0.0-3.38) ng/mL Troponin I (0.00-0.120) ng/mL Total Protein 8.2 (6.3-8.3) g/dL Albumin 4.3 (3.5-5.0) g/dL Globulin 3.9 (2.2-3.9) gm/dL Albumin/Globulin Ratio 1.1 (1.0-2.1) Lipase 61 (23-300) U/L Free T4 (0.78-2.19) ng/dL TSH 3rd Generation (0.46-4.68) mIU/L Urine Color (YELLOW) Urine Clarity (Clear) Urine pH (5.0-8.0) Ur Specific [place] (1.003-1.030) Urine Protein (NEGATIVE) mg/dL Urine Glucose (UA) (Normal) mg/dL Urine Ketones (NEGATIVE) mg/dL Urine Blood (NEGATIVE) Urine Nitrate (NEGATIVE) Urine Bilirubin (NEGATIVE) Urine Urobilinogen (0.2-1.0) mg/dL Ur Leukocyte Esterase (Negative) Crystal/uL Urine WBC (Auto) (0-5) /hpf Urine RBC (Auto) (0-3) /hpf Urine WBC Clumps (Auto) (NONE) /hpf Ur Squamous Epith Cells (0-5) /hpf Hyaline Casts (0-2) /lpf Urine HCG, Qual (NEGATIVE) Salicylates < 1.0 mg/dL 1 Urine Opiates Screen (NEGATIVE) Urine Methadone Screen (NEGATIVE) Acetaminophen < 10.0 L (10.0-30.0) ug/mL Ur Barbiturates Screen (NEGATIVE) Ur Phencyclidine Scrn (NEGATIVE) Ur Amphetamines Screen (NEGATIVE) U Benzodiazepines Scrn (NEGATIVE) U Oth Cocaine Metabols (NEGATIVE) U Cannabinoids Screen (NEGATIVE) Alcohol, Quantitative (0-10) mg/dl B-Hydroxybutyrate (0.02-0.27) mM Laboratory Results - last 24 hr 01/30/18 01/30/18 01/30/18 21:10 21:10 21:10 WBC 11.8 H RBC 5.02 Hgb 12.9 Hct 39.8 MCV 79.3 L MCH 25.6 L MCHC 32.3 L RDW 17.1 H Plt Count 193 MPV 8.6 Neut % (Auto) 88.5 H Lymph % (Auto) 6.2 L [place] % (Auto) 5.1 Eos % (Auto) 0.1 Baso % (Auto) 0.1 Neut # (Auto) 10.4 H Lymph # (Auto) 0.7 L [place] # (Auto) 0.6 Eos # (Auto) 0.0 Baso # (Auto) 0.0 Neutrophils % (Manual) 86 H Lymphocytes % (Manual) 8 L Monocytes % (Manual) 6 Platelet Estimate Normal Anisocytosis (manual) Slight Puncture Site pCO2 pO2 HCO3 ABG pH ABG Total CO2 ABG O2 Saturation ABG Base Excess ABG Hemoglobin ABG Carboxyhemoglobin POC ABG HHb (Measured) ABG Methemoglobin Abelardo Test A-a O2 Difference Respiratory Index Hgb O2 Saturation FiO2 Sodium 145 Potassium 4.4 Chloride 110 H Carbon Dioxide 17 L Anion Gap 23 H BUN 15 Creatinine 1.3 H Est GFR ( Amer) 56 Est GFR (Non-Af Amer) 46 POC Glucose (mg/dL) Random Glucose 128 H Hemoglobin A1c Serum Osmolality Lactic Acid Calcium 9.6 Phosphorus Magnesium Total Bilirubin 0.5 AST 48 H ALT 21 Alkaline Phosphatase 80 Total Creatine Kinase CK-MB (Mass) Troponin I Total Protein 8.2 Albumin 4.3 Globulin 3.9 Albumin/Globulin Ratio 1.1 Lipase 61 Free T4 TSH 3rd Generation Urine Color Urine Clarity Urine pH Ur Specific [place] Urine Protein Urine Glucose (UA) Urine Ketones Urine Blood Urine Nitrate Urine Bilirubin Urine Urobilinogen Ur Leukocyte Esterase Urine WBC (Auto) Urine RBC (Auto) Urine WBC Clumps (Auto) Ur Squamous Epith Cells Hyaline Casts Urine HCG, Qual Salicylates < 1.0 Urine Opiates Screen Urine Methadone Screen Acetaminophen < 10.0 L Ur Barbiturates Screen Ur Phencyclidine Scrn Ur Amphetamines Screen U Benzodiazepines Scrn U Oth Cocaine Metabols U Cannabinoids Screen Alcohol, Quantitative B-Hydroxybutyrate 01/30/18 01/30/18 01/30/18 21:28 21:50 21:50 WBC RBC Hgb Hct MCV MCH MCHC RDW Plt Count MPV Neut % (Auto) Lymph % (Auto) [place] % (Auto) Eos % (Auto) Baso % (Auto) Neut # (Auto) Lymph # (Auto) [place] # (Auto) Eos # (Auto) Baso # (Auto) Neutrophils % (Manual) Lymphocytes % (Manual) Monocytes % (Manual) Platelet Estimate Anisocytosis (manual) Puncture Site pCO2 pO2 HCO3 ABG pH ABG Total CO2 ABG O2 Saturation ABG Base Excess ABG Hemoglobin ABG Carboxyhemoglobin POC ABG HHb (Measured) ABG Methemoglobin [place]ardo Test A-a O2 Difference Respiratory Index Hgb O2 Saturation FiO2 Sodium Potassium Chloride Carbon Dioxide Anion Gap BUN Creatinine Est GFR ( Amer) Est GFR (Non-Af Amer) POC Glucose (mg/dL) 122 H Random Glucose Hemoglobin A1c Serum Osmolality Lactic Acid Calcium Phosphorus Magnesium Total Bilirubin AST ALT Alkaline Phosphatase Total Creatine Kinase CK-MB (Mass) Troponin I Total Protein Albumin Globulin Albumin/Globulin Ratio Lipase Free T4 TSH 3rd Generation Urine Color Yellow Urine Clarity Hazy Urine pH 5.0 Ur Specific [place] 1.015 Urine Protein 2+ H Urine Glucose (UA) 1+ Urine Ketones 1+ H Urine Blood 1+ H Urine Nitrate Negative Urine Bilirubin Negative Urine Urobilinogen Normal Ur Leukocyte Esterase Neg Urine WBC (Auto) 92 H Urine RBC (Auto) 2 Urine WBC Clumps (Auto) Few H Ur Squamous Epith Cells < 1 Hyaline Casts 0-2 Urine HCG, Qual Negative Salicylates Urine Opiates Screen Negative Urine Methadone Screen Negative Acetaminophen Ur Barbiturates Screen Negative Ur Phencyclidine Scrn Negative Ur Amphetamines Screen Negative U Benzodiazepines Scrn Negative U Oth Cocaine Metabols Negative U Cannabinoids Screen Positive H Alcohol, Quantitative B-Hydroxybutyrate 01/30/18 01/30/18 01/30/18 22:00 22:50 23:20 WBC RBC Hgb Hct MCV MCH MCHC RDW Plt Count MPV Neut % (Auto) Lymph % (Auto) [place] % (Auto) Eos % (Auto) Baso % (Auto) Neut # (Auto) Lymph # (Auto) [place] # (Auto) Eos # (Auto) Baso # (Auto) Neutrophils % (Manual) Lymphocytes % (Manual) Monocytes % (Manual) Platelet Estimate Anisocytosis (manual) Puncture Site Rradial pCO2 31 L pO2 96 HCO3 20.9 L ABG pH 7.39 ABG Total CO2 19.8 L ABG O2 Saturation 98.6 H ABG Base Excess -5.2 L ABG Hemoglobin 12.6 ABG Carboxyhemoglobin 1.3 POC ABG HHb (Measured) 1.4 ABG Methemoglobin 0.7 Abelardo Test Pos A-a O2 Difference 15.0 Respiratory Index 0.2 Hgb O2 Saturation 96.6 FiO2 21.0 Sodium Potassium Chloride Carbon Dioxide Anion Gap BUN Creatinine Est GFR ( Amer) Est GFR (Non-Af Amer) POC Glucose (mg/dL) Random Glucose Hemoglobin A1c Serum Osmolality Lactic Acid 2.3 H Calcium Phosphorus 4.6 H Magnesium 1.7 Total Bilirubin AST ALT Alkaline Phosphatase Total Creatine Kinase CK-MB (Mass) Troponin I Total Protein Albumin Globulin Albumin/Globulin Ratio Lipase Free T4 TSH 3rd Generation Urine Color Urine Clarity Urine pH Ur Specific [place] Urine Protein Urine Glucose (UA) Urine Ketones Urine Blood Urine Nitrate Urine Bilirubin Urine Urobilinogen Ur Leukocyte Esterase Urine WBC (Auto) Urine RBC (Auto) Urine WBC Clumps (Auto) Ur Squamous Epith Cells Hyaline Casts Urine HCG, Qual Salicylates Urine Opiates Screen Urine Methadone Screen Acetaminophen Ur Barbiturates Screen Ur Phencyclidine Scrn Ur Amphetamines Screen U Benzodiazepines Scrn U Oth Cocaine Metabols U Cannabinoids Screen Alcohol, Quantitative < 10 B-Hydroxybutyrate 01/30/18 01/30/18 01/30/18 23:20 23:20 23:35 WBC RBC Hgb Hct MCV MCH MCHC RDW Plt Count MPV Neut % (Auto) Lymph % (Auto) [place] % (Auto) Eos % (Auto) Baso % (Auto) Neut # (Auto) Lymph # (Auto) [place] # (Auto) Eos # (Auto) Baso # (Auto) Neutrophils % (Manual) Lymphocytes % (Manual) Monocytes % (Manual) Platelet Estimate Anisocytosis (manual) Puncture Site pCO2 pO2 HCO3 ABG pH ABG Total CO2 ABG O2 Saturation ABG Base Excess ABG Hemoglobin ABG Carboxyhemoglobin POC ABG HHb (Measured) ABG Methemoglobin Abelardo Test A-a O2 Difference Respiratory Index Hgb O2 Saturation FiO2 Sodium 144 Potassium 3.8 Chloride 106 Carbon Dioxide 20 L Anion Gap 21 H BUN 15 Creatinine 1.4 H Est GFR ( Amer) 51 Est GFR (Non-Af Amer) 43 POC Glucose (mg/dL) Random Glucose 135 H Hemoglobin A1c 5.6 Serum Osmolality Lactic Acid Calcium 9.8 Phosphorus 4.1 Magnesium 3.0 H Total Bilirubin 0.3 AST 43 H ALT 27 Alkaline Phosphatase 95 Total Creatine Kinase CK-MB (Mass) Troponin I Total Protein 8.5 H Albumin 4.6 Globulin 3.9 Albumin/Globulin Ratio 1.2 Lipase Free T4 TSH 3rd Generation Urine Color Urine Clarity Urine pH Ur Specific [place] Urine Protein Urine Glucose (UA) Urine Ketones Urine Blood Urine Nitrate Urine Bilirubin Urine Urobilinogen Ur Leukocyte Esterase Urine WBC (Auto) Urine RBC (Auto) Urine WBC Clumps (Auto) Ur Squamous Epith Cells Hyaline Casts Urine HCG, Qual Salicylates Urine Opiates Screen Urine Methadone Screen Acetaminophen Ur Barbiturates Screen Ur Phencyclidine Scrn Ur Amphetamines Screen U Benzodiazepines Scrn U Oth Cocaine Metabols U Cannabinoids Screen Alcohol, Quantitative B-Hydroxybutyrate 0.24 01/31/18 01/31/18 01/31/18 00:43 06:37 06:37 WBC RBC Hgb Hct MCV MCH MCHC RDW Plt Count MPV Neut % (Auto) Lymph % (Auto) [place] % (Auto) Eos % (Auto) Baso % (Auto) Neut # (Auto) Lymph # (Auto) [place] # (Auto) Eos # (Auto) Baso # (Auto) Neutrophils % (Manual) Lymphocytes % (Manual) Monocytes % (Manual) Platelet Estimate Anisocytosis (manual) Puncture Site pCO2 pO2 HCO3 ABG pH ABG Total CO2 ABG O2 Saturation ABG Base Excess ABG Hemoglobin ABG Carboxyhemoglobin POC ABG HHb (Measured) ABG Methemoglobin Abelardo Test A-a O2 Difference Respiratory Index Hgb O2 Saturation FiO2 Sodium 143 Potassium 3.6 Chloride 109 H Carbon Dioxide 21 L Anion Gap 18 BUN 17 Creatinine 1.2 Est GFR ( Amer) > 60 Est GFR (Non-Af Amer) 51 POC Glucose (mg/dL) Random Glucose 89 Hemoglobin A1c Serum Osmolality 301 H 297 Lactic Acid Calcium 9.0 Phosphorus 4.2 Magnesium 2.4 H Total Bilirubin 0.4 AST 50 H ALT 22 Alkaline Phosphatase 73 Total Creatine Kinase CK-MB (Mass) Troponin I Total Protein 7.5 Albumin 4.2 Globulin 3.3 Albumin/Globulin Ratio 1.2 Lipase Free T4 TSH 3rd Generation Urine Color Urine Clarity Urine pH Ur Specific [place] Urine Protein Urine Glucose (UA) Urine Ketones Urine Blood Urine Nitrate Urine Bilirubin Urine Urobilinogen Ur Leukocyte Esterase Urine WBC (Auto) Urine RBC (Auto) Urine WBC Clumps (Auto) Ur Squamous Epith Cells Hyaline Casts Urine HCG, Qual Salicylates Urine Opiates Screen Urine Methadone Screen Acetaminophen Ur Barbiturates Screen Ur Phencyclidine Scrn Ur Amphetamines Screen U Benzodiazepines Scrn U Oth Cocaine Metabols U Cannabinoids Screen Alcohol, Quantitative B-Hydroxybutyrate 01/31/18 01/31/18 01/31/18 06:37 12:07 12:07 WBC 7.9 RBC 4.56 Hgb 11.9 Hct 35.8 MCV 78.4 L MCH 26.2 L MCHC 33.4 RDW 16.9 H Plt Count 194 MPV 9.1 Neut % (Auto) 73.4 Lymph % (Auto) 17.8 L [place] % (Auto) 8.3 Eos % (Auto) 0.3 Baso % (Auto) 0.2 Neut # (Auto) 5.8 Lymph # (Auto) 1.4 [place] # (Auto) 0.7 Eos # (Auto) 0.0 Baso # (Auto) 0.0 Neutrophils % (Manual) Lymphocytes % (Manual) Monocytes % (Manual) Platelet Estimate Anisocytosis (manual) Puncture Site pCO2 pO2 HCO3 ABG pH ABG Total CO2 ABG O2 Saturation ABG Base Excess ABG Hemoglobin ABG Carboxyhemoglobin POC ABG HHb (Measured) ABG Methemoglobin Abelardo Test A-a O2 Difference Respiratory Index Hgb O2 Saturation FiO2 Sodium 143 Potassium 3.0 L Chloride 108 H Carbon Dioxide 23 Anion Gap 15 BUN 16 Creatinine 1.1 Est GFR ( Amer) > 60 Est GFR (Non-Af Amer) 56 POC Glucose (mg/dL) Random Glucose 100 Hemoglobin A1c Serum Osmolality Lactic Acid Calcium 9.1 Phosphorus 3.3 Magnesium 2.0 Total Bilirubin 0.5 AST 48 H ALT 24 Alkaline Phosphatase 81 Total Creatine Kinase 1138 H CK-MB (Mass) 11.0 H Troponin I 0.0230 Total Protein 7.6 Albumin 4.0 Globulin 3.6 Albumin/Globulin Ratio 1.1 Lipase Free T4 1.64 TSH 3rd Generation 0.96 Urine Color Urine Clarity Urine pH Ur Specific [place] Urine Protein Urine Glucose (UA) Urine Ketones Urine Blood Urine Nitrate Urine Bilirubin Urine Urobilinogen Ur Leukocyte Esterase Urine WBC (Auto) Urine RBC (Auto) Urine WBC Clumps (Auto) Ur Squamous Epith Cells Hyaline Casts Urine HCG, Qual Salicylates Urine Opiates Screen Urine Methadone Screen Acetaminophen Ur Barbiturates Screen Ur Phencyclidine Scrn Ur Amphetamines Screen U Benzodiazepines Scrn U Oth Cocaine Metabols U Cannabinoids Screen Alcohol, Quantitative B-Hydroxybutyrate EKG/Cardiology Studies: Cardiology / EKG Studies 01/30/18 21:23 ELECTROCARDIOGRAM Stat Comment: Mode Of Transportation: Reason For Exam: overdose 01/30/18 22:39 EKG [ELECTROCARDIOGRAM] Stat Comment: Mode Of Transportation: BED Reason For Exam: cp 01/31/18 10:44 EKG [ELECTROCARDIOGRAM] Stat Comment: Mode Of Transportation: Reason For Exam: QT Review of Systems - Review of Systems Systems not reviewed;Unavailable: Other (patient sedated due to aggressive behavior) Critical Care Progress Note - Prophylaxis DVT Prophylaxis DVT: Heparin SQ Assessment/Plan - Assessment and Plan (Free Text) Plan: 37 year old female with PMHx of hypothyroid s/p thyroidectomy admitted to ICU for observation following intentional overdose by ingesting unknown number of seroquel pills. Neurological: Patient with periods of aggressive behavior. Ativan 1mg Q4H PRN Cardiovascular: EKG: Sinus tachycardia @ 105, Q waves inferiorly and laterally, elevated QRS diffusely. Troponin negative x 1 Respiratory: maintain SpO2 >95% Prophylaxis: Heparin 5000 SC, SCD Dispo: Patient stable for transfer to Telemetry. Case discussed with Dr. Schaeffer.
[2018-01-31] MEDS: Sodium Chloride 0.9% 1,000 ML IV SCH (15:33)
--- NOTE | 2018-01-31 18:43 | CP.PCM.HP ---
Past Patient History - Infectious Disease Hx of Infectious Diseases: None - Tetanus Immunizations Tetanus Immunization: Unknown - Past Medical History & Family History Past Medical History?: Yes - Past Social History Smoking Status: Never Smoked - ENDOCRINE/METABOLIC Hx Hypothyroidism: Yes - MUSCULOSKELETAL/RHEUMATOLOGICAL Hx Falls: No - PSYCHIATRIC Hx Substance Use: No - SURGICAL HISTORY Hx Appendectomy: Yes - ANESTHESIA Hx Anesthesia: Yes Hx Anesthesia Reactions: No Meds Allergies/Adverse Reactions: Allergies Allergy/AdvReac Type Severity Reaction Status Date / Time No Known Allergies Allergy Verified 01/30/18 21:15 Physical Exam - Constitutional Appears: Well - Head Exam Head Exam: ATRAUMATIC, NORMAL INSPECTION, NORMOCEPHALIC - Eye Exam Eye Exam: EOMI, Normal appearance, PERRL Pupil Exam: NORMAL ACCOMODATION, PERRL - ENT Exam ENT Exam: Mucous Membranes Moist, Normal Exam - Neck Exam Neck exam: Positive for: Normal Inspection - Respiratory Exam Respiratory Exam: Decreased Breath Sounds - Cardiovascular Exam Cardiovascular Exam: REGULAR RHYTHM, +S1, +S2 - GI/Abdominal Exam GI & Abdominal Exam: Diminished Bowel Sounds, Soft - Rectal Exam Rectal Exam: Deferred Results - Vital Signs Recent Vital Signs: Last Vital Signs Temp 98.4 F 01/31/18 16:00 Pulse 105 H 01/31/18 17:00 Resp 21 01/31/18 17:00 BP 126/89 01/31/18 16:57 Pulse Ox 99 01/31/18 15:00 - Labs Result Diagrams: 01/31/18 06:37 01/31/18 12:07 Labs: Laboratory Results - last 24 hr 01/30/18 01/30/18 01/30/18 21:10 21:10 21:10 WBC 11.8 H RBC 5.02 Hgb 12.9 Hct 39.8 MCV 79.3 L MCH 25.6 L MCHC 32.3 L RDW 17.1 H Plt Count 193 MPV 8.6 Neut % (Auto) 88.5 H Lymph % (Auto) 6.2 L [place] % (Auto) 5.1 Eos % (Auto) 0.1 Baso % (Auto) 0.1 Neut # (Auto) 10.4 H Lymph # (Auto) 0.7 L [place] # (Auto) 0.6 Eos # (Auto) 0.0 Baso # (Auto) 0.0 Neutrophils % (Manual) 86 H Lymphocytes % (Manual) 8 L Monocytes % (Manual) 6 Platelet Estimate Normal Anisocytosis (manual) Slight Puncture Site pCO2 pO2 HCO3 ABG pH ABG Total CO2 ABG O2 Saturation ABG Base Excess ABG Hemoglobin ABG Carboxyhemoglobin POC ABG HHb (Measured) ABG Methemoglobin Abelardo Test A-a O2 Difference Respiratory Index Hgb O2 Saturation FiO2 Sodium 145 Potassium 4.4 Chloride 110 H Carbon Dioxide 17 L Anion Gap 23 H BUN 15 Creatinine 1.3 H Est GFR ( Amer) 56 Est GFR (Non-Af Amer) 46 POC Glucose (mg/dL) Random Glucose 128 H Hemoglobin A1c Serum Osmolality Lactic Acid Calcium 9.6 Phosphorus Magnesium Total Bilirubin 0.5 AST 48 H ALT 21 Alkaline Phosphatase 80 Total Creatine Kinase CK-MB (Mass) Troponin I Total Protein 8.2 Albumin 4.3 Globulin 3.9 Albumin/Globulin Ratio 1.1 Lipase 61 Free T4 TSH 3rd Generation Urine Color Urine Clarity Urine pH Ur Specific [place] Urine Protein Urine Glucose (UA) Urine Ketones Urine Blood Urine Nitrate Urine Bilirubin Urine Urobilinogen Ur Leukocyte Esterase Urine WBC (Auto) Urine RBC (Auto) Urine WBC Clumps (Auto) Ur Squamous Epith Cells Hyaline Casts Urine HCG, Qual Salicylates < 1.0 Urine Opiates Screen Urine Methadone Screen Acetaminophen < 10.0 L Ur Barbiturates Screen Ur Phencyclidine Scrn Ur Amphetamines Screen U Benzodiazepines Scrn U Oth Cocaine Metabols U Cannabinoids Screen Alcohol, Quantitative B-Hydroxybutyrate 01/30/18 01/30/18 01/30/18 21:28 21:50 21:50 WBC RBC Hgb Hct MCV MCH MCHC RDW Plt Count MPV Neut % (Auto) Lymph % (Auto) [place] % (Auto) Eos % (Auto) Baso % (Auto) Neut # (Auto) Lymph # (Auto) [place] # (Auto) Eos # (Auto) Baso # (Auto) Neutrophils % (Manual) Lymphocytes % (Manual) Monocytes % (Manual) Platelet Estimate Anisocytosis (manual) Puncture Site pCO2 pO2 HCO3 ABG pH ABG Total CO2 ABG O2 Saturation ABG Base Excess ABG Hemoglobin ABG Carboxyhemoglobin POC ABG HHb (Measured) ABG Methemoglobin Abelardo Test A-a O2 Difference Respiratory Index Hgb O2 Saturation FiO2 Sodium Potassium Chloride Carbon Dioxide Anion Gap BUN Creatinine Est GFR ( Amer) Est GFR (Non-Af Amer) POC Glucose (mg/dL) 122 H Random Glucose Hemoglobin A1c Serum Osmolality Lactic Acid Calcium Phosphorus Magnesium Total Bilirubin AST ALT Alkaline Phosphatase Total Creatine Kinase CK-MB (Mass) Troponin I Total Protein Albumin Globulin Albumin/Globulin Ratio Lipase Free T4 TSH 3rd Generation Urine Color Yellow Urine Clarity Hazy Urine pH 5.0 Ur Specific [place] 1.015 Urine Protein 2+ H Urine Glucose (UA) 1+ Urine Ketones 1+ H Urine Blood 1+ H Urine Nitrate Negative Urine Bilirubin Negative Urine Urobilinogen Normal Ur Leukocyte Esterase Neg Urine WBC (Auto) 92 H Urine RBC (Auto) 2 Urine WBC Clumps (Auto) Few H Ur Squamous Epith Cells < 1 Hyaline Casts 0-2 Urine HCG, Qual Negative Salicylates Urine Opiates Screen Negative Urine Methadone Screen Negative Acetaminophen Ur Barbiturates Screen Negative Ur Phencyclidine Scrn Negative Ur Amphetamines Screen Negative U Benzodiazepines Scrn Negative U Oth Cocaine Metabols Negative U Cannabinoids Screen Positive H Alcohol, Quantitative B-Hydroxybutyrate 01/30/18 01/30/18 01/30/18 22:00 22:50 23:20 WBC RBC Hgb Hct MCV MCH MCHC RDW Plt Count MPV Neut % (Auto) Lymph % (Auto) [place] % (Auto) Eos % (Auto) Baso % (Auto) Neut # (Auto) Lymph # (Auto) [place] # (Auto) Eos # (Auto) Baso # (Auto) Neutrophils % (Manual) Lymphocytes % (Manual) Monocytes % (Manual) Platelet Estimate Anisocytosis (manual) Puncture Site Rradial pCO2 31 L pO2 96 HCO3 20.9 L ABG pH 7.39 ABG Total CO2 19.8 L ABG O2 Saturation 98.6 H ABG Base Excess -5.2 L ABG Hemoglobin 12.6 ABG Carboxyhemoglobin 1.3 POC ABG HHb (Measured) 1.4 ABG Methemoglobin 0.7 Abelardo Test Pos A-a O2 Difference 15.0 Respiratory Index 0.2 Hgb O2 Saturation 96.6 FiO2 21.0 Sodium Potassium Chloride Carbon Dioxide Anion Gap BUN Creatinine Est GFR ( Amer) Est GFR (Non-Af Amer) POC Glucose (mg/dL) Random Glucose Hemoglobin A1c Serum Osmolality Lactic Acid 2.3 H Calcium Phosphorus 4.6 H Magnesium 1.7 Total Bilirubin AST ALT Alkaline Phosphatase Total Creatine Kinase CK-MB (Mass) Troponin I Total Protein Albumin Globulin Albumin/Globulin Ratio Lipase Free T4 TSH 3rd Generation Urine Color Urine Clarity Urine pH Ur Specific [place] Urine Protein Urine Glucose (UA) Urine Ketones Urine Blood Urine Nitrate Urine Bilirubin Urine Urobilinogen Ur Leukocyte Esterase Urine WBC (Auto) Urine RBC (Auto) Urine WBC Clumps (Auto) Ur Squamous Epith Cells Hyaline Casts Urine HCG, Qual Salicylates Urine Opiates Screen Urine Methadone Screen Acetaminophen Ur Barbiturates Screen Ur Phencyclidine Scrn Ur Amphetamines Screen U Benzodiazepines Scrn U Oth Cocaine Metabols U Cannabinoids Screen Alcohol, Quantitative < 10 B-Hydroxybutyrate 01/30/18 01/30/18 01/30/18 23:20 23:20 23:35 WBC RBC Hgb Hct MCV MCH MCHC RDW Plt Count MPV Neut % (Auto) Lymph % (Auto) [place] % (Auto) Eos % (Auto) Baso % (Auto) Neut # (Auto) Lymph # (Auto) [place] # (Auto) Eos # (Auto) Baso # (Auto) Neutrophils % (Manual) Lymphocytes % (Manual) Monocytes % (Manual) Platelet Estimate Anisocytosis (manual) Puncture Site pCO2 pO2 HCO3 ABG pH ABG Total CO2 ABG O2 Saturation ABG Base Excess ABG Hemoglobin ABG Carboxyhemoglobin POC ABG HHb (Measured) ABG Methemoglobin Abelardo Test A-a O2 Difference Respiratory Index Hgb O2 Saturation FiO2 Sodium 144 Potassium 3.8 Chloride 106 Carbon Dioxide 20 L Anion Gap 21 H BUN 15 Creatinine 1.4 H Est GFR ( Amer) 51 Est GFR (Non-Af Amer) 43 POC Glucose (mg/dL) Random Glucose 135 H Hemoglobin A1c 5.6 Serum Osmolality Lactic Acid Calcium 9.8 Phosphorus 4.1 Magnesium 3.0 H Total Bilirubin 0.3 AST 43 H ALT 27 Alkaline Phosphatase 95 Total Creatine Kinase CK-MB (Mass) Troponin I Total Protein 8.5 H Albumin 4.6 Globulin 3.9 Albumin/Globulin Ratio 1.2 Lipase Free T4 TSH 3rd Generation Urine Color Urine Clarity Urine pH Ur Specific [place] Urine Protein Urine Glucose (UA) Urine Ketones Urine Blood Urine Nitrate Urine Bilirubin Urine Urobilinogen Ur Leukocyte Esterase Urine WBC (Auto) Urine RBC (Auto) Urine WBC Clumps (Auto) Ur Squamous Epith Cells Hyaline Casts Urine HCG, Qual Salicylates Urine Opiates Screen Urine Methadone Screen Acetaminophen Ur Barbiturates Screen Ur Phencyclidine Scrn Ur Amphetamines Screen U Benzodiazepines Scrn U Oth Cocaine Metabols U Cannabinoids Screen Alcohol, Quantitative B-Hydroxybutyrate 0.24 01/31/18 01/31/18 01/31/18 00:43 06:37 06:37 WBC RBC Hgb Hct MCV MCH MCHC RDW Plt Count MPV Neut % (Auto) Lymph % (Auto) [place] % (Auto) Eos % (Auto) Baso % (Auto) Neut # (Auto) Lymph # (Auto) [place] # (Auto) Eos # (Auto) Baso # (Auto) Neutrophils % (Manual) Lymphocytes % (Manual) Monocytes % (Manual) Platelet Estimate Anisocytosis (manual) Puncture Site pCO2 pO2 HCO3 ABG pH ABG Total CO2 ABG O2 Saturation ABG Base Excess ABG Hemoglobin ABG Carboxyhemoglobin POC ABG HHb (Measured) ABG Methemoglobin Abelardo Test A-a O2 Difference Respiratory Index Hgb O2 Saturation FiO2 Sodium 143 Potassium 3.6 Chloride 109 H Carbon Dioxide 21 L Anion Gap 18 BUN 17 Creatinine 1.2 Est GFR ( Amer) > 60 Est GFR (Non-Af Amer) 51 POC Glucose (mg/dL) Random Glucose 89 Hemoglobin A1c Serum Osmolality 301 H 297 Lactic Acid Calcium 9.0 Phosphorus 4.2 Magnesium 2.4 H Total Bilirubin 0.4 AST 50 H ALT 22 Alkaline Phosphatase 73 Total Creatine Kinase CK-MB (Mass) Troponin I Total Protein 7.5 Albumin 4.2 Globulin 3.3 Albumin/Globulin Ratio 1.2 Lipase Free T4 TSH 3rd Generation Urine Color Urine Clarity Urine pH Ur Specific [place] Urine Protein Urine Glucose (UA) Urine Ketones Urine Blood Urine Nitrate Urine Bilirubin Urine Urobilinogen Ur Leukocyte Esterase Urine WBC (Auto) Urine RBC (Auto) Urine WBC Clumps (Auto) Ur Squamous Epith Cells Hyaline Casts Urine HCG, Qual Salicylates Urine Opiates Screen Urine Methadone Screen Acetaminophen Ur Barbiturates Screen Ur Phencyclidine Scrn Ur Amphetamines Screen U Benzodiazepines Scrn U Oth Cocaine Metabols U Cannabinoids Screen Alcohol, Quantitative B-Hydroxybutyrate 01/31/18 01/31/18 01/31/18 06:37 12:07 12:07 WBC 7.9 RBC 4.56 Hgb 11.9 Hct 35.8 MCV 78.4 L MCH 26.2 L MCHC 33.4 RDW 16.9 H Plt Count 194 MPV 9.1 Neut % (Auto) 73.4 Lymph % (Auto) 17.8 L [place] % (Auto) 8.3 Eos % (Auto) 0.3 Baso % (Auto) 0.2 Neut # (Auto) 5.8 Lymph # (Auto) 1.4 [place] # (Auto) 0.7 Eos # (Auto) 0.0 Baso # (Auto) 0.0 Neutrophils % (Manual) Lymphocytes % (Manual) Monocytes % (Manual) Platelet Estimate Anisocytosis (manual) Puncture Site pCO2 pO2 HCO3 ABG pH ABG Total CO2 ABG O2 Saturation ABG Base Excess ABG Hemoglobin ABG Carboxyhemoglobin POC ABG HHb (Measured) ABG Methemoglobin Abelardo Test A-a O2 Difference Respiratory Index Hgb O2 Saturation FiO2 Sodium 143 Potassium 3.0 L Chloride 108 H Carbon Dioxide 23 Anion Gap 15 BUN 16 Creatinine 1.1 Est GFR ( Amer) > 60 Est GFR (Non-Af Amer) 56 POC Glucose (mg/dL) Random Glucose 100 Hemoglobin A1c Serum Osmolality Lactic Acid Calcium 9.1 Phosphorus 3.3 Magnesium 2.0 Total Bilirubin 0.5 AST 48 H ALT 24 Alkaline Phosphatase 81 Total Creatine Kinase 1138 H CK-MB (Mass) 11.0 H Troponin I 0.0230 Total Protein 7.6 Albumin 4.0 Globulin 3.6 Albumin/Globulin Ratio 1.1 Lipase Free T4 1.64 TSH 3rd Generation 0.96 Urine Color Urine Clarity Urine pH Ur Specific [place] Urine Protein Urine Glucose (UA) Urine Ketones Urine Blood Urine Nitrate Urine Bilirubin Urine Urobilinogen Ur Leukocyte Esterase Urine WBC (Auto) Urine RBC (Auto) Urine WBC Clumps (Auto) Ur Squamous Epith Cells Hyaline Casts Urine HCG, Qual Salicylates Urine Opiates Screen Urine Methadone Screen Acetaminophen Ur Barbiturates Screen Ur Phencyclidine Scrn Ur Amphetamines Screen U Benzodiazepines Scrn U Oth Cocaine Metabols U Cannabinoids Screen Alcohol, Quantitative B-Hydroxybutyrate
--- NOTE | 2018-01-31 23:21 | CARD ---
APPROVED REPORT Date of service: 01/30/2018 EKG Measurement Heart [id number] <Conclusion> Normal sinus rhythm Possible Left atrial enlargement T wave abnormality, consider inferior ischemia T wave abnormality, consider anterolateral ischemia Prolonged QT Abnormal ECG
--- NOTE | 2018-01-31 23:21 | CARD ---
APPROVED REPORT Date of service: 01/30/2018 EKG Measurement Heart [id number] <Conclusion> Normal sinus rhythm Nonspecific T wave abnormality Abnormal ECG
[2018-02-01 06:46] LABS: ALB/GLOB RATIO 1.1 (1.0-2.1); ALBUMIN 3.9 g/dL (3.5-5.0); ALT/SGPT 22 U/L (9-52); AST/SGOT 42 U/L (14-36); BLOOD UREA NITROGEN 13 mg/dL (7-17); GFR AFRICAN-AMERICAN > 60; GFR NON-AFRICAN AMERICAN > 60
--- NOTE | 2018-02-01 12:08 | CARD ---
APPROVED REPORT Date of service: 01/31/2018 EKG Measurement Heart [id number] <Conclusion> Sinus tachycardia with 1st degree AV block ST & T wave abnormality, consider inferior ischemia ST & T wave abnormality, consider anterolateral ischemia Abnormal ECG
--- NOTE | 2018-02-01 14:53 | PCM.PYCHPN ---
Psychiatric Progress Note - Psychiatric Progress Note Patient seen today, length of contact: 18 min Patient Chief Complaint: "I'm tired" Problems Identified/Issues Discussed: The patient is seen, chart reviewed and case discussed. She is somewhat better than yesterday; still periodically disoriented, easily agitated but she now answers back and sometimes makes sense. When questions about the suicide attempt, she said "I have nobody, my children, my family, nobody talks to me." [employer] asked for a collateral name or number and she couldn't provide and then got agitated again. she wouldn't answer many other questions. Medical treatment is ongoing, she is on one-to-one Psych meds will now start Medication Change: Yes (add Risperdal) Medical Record Reviewed: Yes Mental Status Examination - Cognitive Function Orientation: Situation (disoriented) Memory: Impaired Attention: Poor Concentration: Poor Association: Loose Fund of Knowledge: Poor - Mood Mood: Other (agitated) - Affect Affect: Other (labile) - Speech Speech: Loud - Formal Thought Process Formal Thought Process: Other (unable to assess) Goal/Treatment Plan - Goal/Treatment Plan Need for Continued Stay: Severe depression anxiety, Discharge may exacerbated symptoms, Severe functional impairment, Other (medical) Progress Toward Problem(s) and Goals/Treatment Plan: Continue current treatment prn haldol and ativan for agitation risperidone for mood swings and irritability Try to get collateral info re past history, the suicide attempt 1:1
[2018-02-01] MEDS: Sodium Chloride 0.9% 1,000 ML IV SCH (19:30)
--- NOTE | 2018-02-01 20:01 | CP.PCM.PN ---
Subjective - Date & Time of Evaluation Date of Evaluation: 02/01/18 Time of Evaluation: 12:15 - Subjective Subjective: clinically same Objective - Vital Signs/Intake and Output Vital Signs (last 24 hours): Temp Pulse Resp BP Pulse Ox 98.7 F 91 H 36 H 127/84 99 02/01/18 12:00 02/01/18 16:00 02/01/18 16:00 02/01/18 15:57 02/01/18 16:00 Intake and Output: 02/01/18 02/02/18 18:59 06:59 Intake Total 145 Output Total 600 Balance -455 - Medications Medications: Current Medications Haloperidol (Haldol) 5 mg PO Q6H PRN PRN Reason: severe agitation Last Admin: 02/01/18 17:00 Dose: 5 mg Heparin Sodium (Porcine) (Heparin) 5,000 units SC Q8 [facility] Last Admin: 02/01/18 13:51 Dose: 5,000 units Sodium Chloride (Sodium Chloride 0.9%) 1,000 mls @ 70 mls/hr IV .[id number] [facility] Last Admin: 01/31/18 15:33 Dose: 70 mls/hr Lorazepam (Ativan) 1 mg IVP Q4H PRN PRN Reason: Agitation Last Admin: 02/01/18 15:56 Dose: 1 mg Risperidone (Risperdal Tab) 1 mg PO BID [facility] Last Admin: 02/01/18 17:00 Dose: 1 mg Temazepam (Restoril) 15 mg PO HS [facility] - Labs Labs: 01/31/18 06:37 02/01/18 06:07 - Constitutional Appears: Well - Head Exam Head Exam: ATRAUMATIC, NORMAL INSPECTION, NORMOCEPHALIC - Eye Exam Eye Exam: EOMI, Normal appearance, PERRL Pupil Exam: NORMAL ACCOMODATION, PERRL - ENT Exam ENT Exam: Mucous Membranes Moist, Normal Exam - Neck Exam Neck Exam: Full ROM, Normal Inspection. absent: Lymphadenopathy - Respiratory Exam Respiratory Exam: Decreased Breath Sounds - Cardiovascular Exam Cardiovascular Exam: REGULAR RHYTHM, +S1, +S2 - GI/Abdominal Exam GI & Abdominal Exam: Soft, Diminished Bowel Sounds - Rectal Exam Rectal Exam: Deferred
[2018-02-02] MEDS: Sodium Chloride 0.9% 1,000 ML IV SCH (10:32)
[2018-02-02 11:46] LABS: CK-MB 1.21 ng/mL (0.0-3.38)
--- NOTE | 2018-02-02 14:17 | PCM.PYCHPN ---
Psychiatric Progress Note - Psychiatric Progress Note Patient seen today, length of contact: 17 min Patient Chief Complaint: "I'm not well" Problems Identified/Issues Discussed: The patient is seen, chart reviewed and case discussed. Still somewhat sedated but more alert than yesterday and oriented. She agreed to be transferred to [facility] (rules discussed) Still depressed and irate, denies SI but she is unreliable, irritable and impulsive Meds adjusted, support given Medication Change: Yes (add Risperdal) Medical Record Reviewed: Yes Mental Status Examination - Cognitive Function Orientation: Person, Place, Situation, Time Memory: Impaired Attention: Poor Concentration: Poor Association: WNL Fund of Knowledge: Poor - Mood Mood: Depressed, Anxious, Other (irate) - Affect Affect: Constricted - Speech Speech: Soft - Formal Thought Process Formal Thought Process: Paranoia - Suicidal Ideation Suicidal Ideation: No - Homicidal Ideation Homicidal Ideation: No Goal/Treatment Plan - Goal/Treatment Plan Need for Continued Stay: Severe depression anxiety, Discharge may exacerbated symptoms, Severe functional impairment Progress Toward Problem(s) and Goals/Treatment Plan: D/W Dr. Lucia, medically cleared CPK dropped She agreed Transfer to [facility] Increase Risperdal, add remeron
--- NOTE | 2018-02-02 15:34 | PCM.BM ---
<Kylah Mcwilliams - Last Filed: 02/02/18 15:32> Treatment Plan Problems - Problems identified on initial assessmt depression Date Initiated: 02/02/18 (pt attemped suicide by OD on seroquel ) Time Initiated: 15:32 Assessment reference: NA Status: Active suicidal ideations Date Initiated: 02/02/18 Time Initiated: 15:32 Assessment reference: NA Status: Active Treatment assets and liabiliti Patient Assests: adapts well, cooperative, ADL independent, physically healthy Patient Liabilities: live alone, poor support system, substance abuse, medical problems - Milieu Protocol Maintain good personal hygiene: daily Encourage regular showers, daily Remind patient to perform daily oral care, every shift Assist patient to perform ADL's Conduct patient checks and document Observation sheet: Q15 minutes Maintain personal safety: every shift Educate patient to report safety concerns to staff, every shift Monitor environment for contraband/sharps Medication safety: Monitor for expected outcome, potential side effects: every shift, Assess barriers to learning: every shift, Assess readiness for medication education: every shift Milieu Narrative: D/W Dr. Lucia, medically cleared CPK dropped She agreed Transfer to [facility] Increase Risperdal, add remeron Discharge/Continuing Care - Treatment Team Participation Patient/Family/SO Statement: D/W Dr. Lucia, medically cleared CPK dropped She agreed Transfer to [facility] Increase Risperdal, add remeron <Vidal Khan - Last Filed: 02/03/18 13:59> - Diagnosis (1) Bipolar disorder, now depressed Status: Acute Interventions: 02/03/18 13:59 * Assess/adjust medications daily and /or as needed * See patient on an individual basis 7x/week to assess level of manic behaviors and stability * Discuss risks, benefits, side effects and alternatives of medications * (2) Suicide attempt Status: Acute Interventions: 02/03/18 14:00 * Assess/adjust medications daily and /or as needed * Discuss risks, benefits, side effects and alternatives of medications * See patient on an individual basis 7x/week to assess level of suicidal thoughts * <Breanna Cox - Last Filed: 02/04/18 09:37> Family Contact Family involvement: Famliy/SO not involved - Goals for Treatment Patient goals for treatment: "I want to go home." Discharge/Continuing Care - Education Needs Education Needs: Patient Medication, Patient Coping Skills - Discharge Discharge Criteria: Tolerates medication w/o severe side effects, Free of Suicidal thoughts, Reduction of target symptoms Discharge to:: Home - Treatment Team Participation Discussed with Family/SO: No Was Patient/Family/SO present at Treatment Team Meeting: Yes
[2018-02-02 16:12] VITALS: O2SAT 99
--- NOTE | 2018-02-02 21:47 | CP.PCM.PN ---
Subjective - Date & Time of Evaluation Date of Evaluation: 02/02/18 Time of Evaluation: 10:35 - Subjective Subjective: PGY2 Medicine Note for Dr. Edel Lucia Patient seen and examined this morning. No acute events over night. Patient is very lethargic. She is awake, alert and oriented x3 but falls back asleep very quickly. She denies suicidal ideation and states she feels much better. She has no medical complaints today. Objective - Vital Signs/Intake and Output Vital Signs (last 24 hours): Temp Pulse Resp BP Pulse Ox 97.9 F 78 20 130/86 99 02/02/18 07:55 02/02/18 16:10 02/02/18 07:55 02/02/18 16:10 02/02/18 16:10 - Medications Medications: Current Medications Haloperidol (Haldol) 5 mg PO Q6H PRN PRN Reason: severe agitation Last Admin: 02/02/18 00:39 Dose: 5 mg Lorazepam (Ativan) 1 mg PO Q6H PRN PRN Reason: severe agitation Mirtazapine (Remeron) 15 mg PO HS [facility] Last Admin: 02/02/18 21:16 Dose: Not Given Pneumococcal Polyvalent Vaccine (Pneumovax 23 Vaccine) 0.5 ml IM .ONCE ONE Stop: 02/04/18 18:01 Risperidone (Risperdal Tab) 2 mg PO BID [facility] Last Admin: 02/02/18 17:39 Dose: 2 mg Trazodone HCl (Desyrel) 50 mg PO HS PRN PRN Reason: Insomnia Ziprasidone (Geodon Inj) 20 mg IM Q12H PRN PRN Reason: aggression - Labs Labs: 01/31/18 06:37 02/01/18 06:07 - Constitutional Appears: Non-toxic, No Acute Distress, Other (lethargic) - Head Exam Head Exam: NORMOCEPHALIC - Eye Exam Eye Exam: Normal appearance - ENT Exam ENT Exam: Mucous Membranes Moist - Respiratory Exam Respiratory Exam: Clear to Ausculation Bilateral, NORMAL BREATHING PATTERN. absent: Accessory Muscle Use, Chest Wall Tenderness, Rales, Rhonchi, Wheezes, Respiratory Distress - Cardiovascular Exam Cardiovascular Exam: REGULAR RHYTHM, +S1 - GI/Abdominal Exam GI & Abdominal Exam: Soft. absent: Distended, Firm, Guarding, Rigid, Tenderness - Extremities Exam Extremities Exam: absent: Calf Tenderness, Pedal Edema - Neurological Exam Neurological Exam: Alert, Awake, Oriented x3 Neuro motor strength exam: Left Upper Extremity: 5, Right Upper Extremity: 5, Left Lower Extremity: 5, Right Lower Extremity: 5 - Psychiatric Exam Psychiatric exam: absent: Homicidal Ideation, Suicidal Ideation Additional comments: very lethargic, falls back asleep quickly inbetween questioning. - Skin Skin Exam: Dry, Warm
--- NOTE | 2018-02-03 13:54 | PCM.PYCHPN ---
Psychiatric Progress Note - Psychiatric Progress Note Patient seen today, length of contact: 17 min Patient Chief Complaint: "I'm much better" Problems Identified/Issues Discussed: The patient is seen, chart reviewed and case discussed. She was more oriented and cooperative, albeit irritable again She claimed she has to go back to work and reclaim her room as soon as possible She agreed to stay until tomorrow but her ideal d/c date would be later Denies SI, SP and regrets having had the attempt That was her "third" suicide attempt and as such she is a high risk pt (she disagrees) Support given, psychoed given, after care discussed Medication Change: Yes Medical Record Reviewed: Yes Mental Status Examination - Cognitive Function Orientation: Person, Place, Situation, Time Memory: Impaired Attention: Poor Concentration: Poor Association: WNL Fund of Knowledge: Poor - Mood Mood: Depressed, Anxious, Other (irate) - Affect Affect: Constricted - Speech Speech: Soft - Formal Thought Process Formal Thought Process: Paranoia - Suicidal Ideation Suicidal Ideation: No - Homicidal Ideation Homicidal Ideation: No Goal/Treatment Plan - Goal/Treatment Plan Need for Continued Stay: Severe depression anxiety, Discharge may exacerbated symptoms, Severe functional impairment Progress Toward Problem(s) and Goals/Treatment Plan: Continue Risperdal Continue Remeron prn meds Support and psychoed Attend groups and activities SW to arrange after care
[2018-02-04 06:19] VITALS: BP 126/84; PULSE 82; RESP 19; TEMP 98.7
--- NOTE | 2018-02-04 09:37 | PCM.PYCHDC ---
Mental Status Examination - Mental Status Examination Orientation: Person, Place, Situation, Time Memory: Intact Mood: Depressed, Anxious Affect: Constricted Speech: Appropriate Attention: WNL Concentration: Poor Association: WNL Fund of Knowledge: WNL Formal Thought Process: No Impairment Suicidal Ideation: No Current Homicidal Ideation?: No Discharge Summary - Discharge Note Reason for Hospitalization: Suicide attempt Consultations:: List each consultation separately and include: 1. Reason for request. 2. Findings. 3. Follow-up Summary of Hospital Course include:: 1. Description of specific treatment plan utilized for patients during their course of treatmen. 2. Summarize the time- course for resolution of acute symptoms and/or regressed behaviors. 3. Describe issues identified and worked on during hospitalization. 4. Describe medication utilized. 5. Describe medical problems identified and treated. 6. Reassessment of suicide risk Summary of Hospital Course: The pt is seen, chart reviewed and case discussed On admission: Consult was requested b/c of her seroquel OD She is confused and uncooperative. She had to be medicated due to aggressive behavior. She is disoriented and labile, has poor sleep Medical treatment is ongoing but she is yet to improve. She OD'ed on unknown amount of seroquel but the details are not known. Head Doffer attempted to get collateral info to no avail Past psych hx: Bipolar d/o, suicide attempt, Medical hx: unknown. Thyroid problems? (per chart) Hospital course: The pt was admitted and started on treatment with psychotherapy, support, psychoeducation and medications. MA and CBT used. The pt attended groups and activities, as well as milieu therapy. All the risks and benefits of medications are discussed and the patient understood and agreed. The pt improved with the treatments provided. After care discussed with the patient. She demanded to leave early, she was irate most of her stay, and in fact while in medical floor she was very agitated due to her delirium. She is referred to [facility] - Final Diagnosis (DSM 5) Condition upon Discharge: GOOD DSM 5: Bipolar disorder - last episode depressed Personality disorder - unspecified, with borderline features Delirium (on admission, cleared now) Disposition: HOME/ ROUTINE Follow-up Treatment Plan: Continue below medications after discharge. Follow after care plan as discussed. Use relapse prevention skills Return to ER or call 911 if suicidal, homicidal or symptoms relapse. Stay away from stress, alcohol and drugs. See primary doctor regularly and get labs. Prescriptions/Medication Reconciliation: Mirtazapine [Remeron] 15 mg PO HS #30 tab risperiDONE [RisperDAL Tab] 2 mg PO BID #60 tab - Smoking Cessation Smoking Cessation Medication prescribed: No
[2018-02-04] MEDS ORDERED: Pneumococcal 23-Valent Vaccine IM ONE (18:00)
== END 2018-02-04 10:48 | disposition home or self-care (01) | DRG 449 ==
LOC: C.ER 21:05 → C.9I 23:10 → C.9E 23:34 → C.9I 01-31 00:26 → C.6T 02-02 03:25 → C.5E 02-02 14:55
PROVIDERS: ADMIT Psychiatry & Neurology Psychiatry; ATTEND Psychiatry & Neurology Psychiatry
PROC: GZHZZZZ Group Psychotherapy (ICD-10-PCS; principal; 2018-01-30)
PROC: GZ58ZZZ Individual Psychotherapy, Cognitive-Behavioral (ICD-10-PCS; 2018-01-30)
PROC: GZ56ZZZ Individual Psychotherapy, Supportive (ICD-10-PCS; 2018-01-30)
DX: T43.592A Poisoning by other antipsychotics and neuroleptics, intentional self-harm, initial encounter (principal); E87.2 Acidosis; R41.0 Disorientation, unspecified; E03.9 Hypothyroidism, unspecified; F31.9 Bipolar disorder, unspecified; F60.3 Borderline personality disorder; R45.1 Restlessness and agitation; F41.8 Other specified anxiety disorders